=== PATIENT | female | born 1955 | race Two or more races ===

== ENCOUNTER 2017-12-03 13:20 | Emergency (ER) | payer OTHER ==
[~2017-12-03] VITALS: Ht 162.6 cm; Wt 120.2 kg
[~2017-12-03 13:20] MED LIST: ? CHOLESTEROL MED; ACET325 PO; ACET500; ACET500 PO; ALBIPROI; ALBIPROI INH; ALDACTONE; ALEN10 PO; ALEN70 PO; ALTACE; ASPI325 PO; ASPI81CH PO; ASPI81EC; ASPIRIN; AZIT250 PO; BACPOLTO30 TP; BENADRYL; BUDE32NIS; BUDE6HFA INH; BUPR100 PO; BUSP5 PO; CALCAVITD PO; CEPH500 PO; CETI10; CETI5; CETI5 PO; CITA20 PO; CLON2; CODACE30 PO; COMBIVENT RESPIM4 GM INH; COUGHTAB200 MG PO; CYCL10 PO; CYMBALTA; DHEA; DHEA PO; DIPH25; DIPH50; DIPH50 PO; DULO30; DULO60; DULO60 PO; EPI-PEN; EPIN.3I; EPIN.3I IM; EPIN0.15; EPIPEN; ESOM20; ESTEST.625; ESTR.75 PO; ESTR1; Esgic Tablet1 EACH PO; Estropipate0.75 MG PO; FAMO40; FISH; FLAX PO; FLAX SEED OIL; FLUC150A; FLUC150A PO; FLUSAL1005; FLUSAL2505 IH; FLUSAL5005; FLUSAL5005 IH; FLUSAL5005 INH; FLUT.05NI; FURO20; FURO20 PO; FURO40; GABA100 PO; GABA300; GABA300 PO; GABA400; GABA600 PO; GABA800; GABA800 PO; GLUC500 PO; GUAI200; GUAI200 PO; GUAI600T33 PO; GUAIFENESIN; HYDACE10B PO; HYDACE5 PO; HYDCHL25 PO; HYDMOR2; HYDMOR2 PO; IBUP800 PO; KETO10 PO; LORA.5 PO; LORA1; LORA1 PO; MECL25; MECL25 PO; MECLIZINE; META800 PO; METCAR750 PO; METH10 PO; METHADONE; METPRE4DP PO; NEOPOLHCSU OT; Norco 5-325 Ta1 EACH PO; OMEP20ER PO; OXYACE5T PO; OXYC10ER; OXYC10ER PO; OXYC10TA19 PO; OXYC20ER; OXYC30; OXYC5; OXYC80ER; OXYC80ER PO; PERP2 PO; PERP8 PO; PHENY100ER; POTA10T PO; POTCHL10ER; POTCHL10ER PO; PRED10 PO; PRED20 PO; PROACE100 PO; PROM25; PROM25 PO; PROM25S; PROM25S PR; PROP10 PO; PSEU120ER; Percocet 5-3251 EACH PO; Prednisone20 MG PO; Prilosec Otc20 MG; RAMI5; RAMI5 PO; RISP2; RXCYCL10 PO; SENN187; SENN187 PO; SENOKOT; SPIR25; SPIR25 PO; SUDAFED; TIOT18; TIOT18 IH; TOPI25; TOPI25 PO; TRAM50 PO; TRIHYD5075; VENL75; VENL75ER; VITNEPH PO; WHEELCHAIR USE; ZIPR20 PO; [UNRECOGNIZED DRUG - CODE]; [UNRECOGNIZED DRUG - OTHER]; [UNRECOGNIZED DRUG - OTHER]; [UNRECOGNIZED DRUG - OTHER]; [UNRECOGNIZED DRUG - OTHER]; [UNRECOGNIZED DRUG - OTHER]
[2017-12-03] MEDS ORDERED: TIOT18 INH (13:56)
[2017-12-03 14:05] LABS: BASOPHILS ABSOLUTE AUTO 0.03 K/mm3 (0.00-0.23); BASOPHILS PERCENT AUTO 1 % (0-2); EOSINOPHILS ABSOLUTE AUTO 0.17 K/mm3 (0.00-0.68); EOSINOPHILS PERCENT AUTO 3 % (0-6); Hematocrit 34.6 % (33.0-51.0); IMMATURE GRAN ABSOLUTE AUTO 0.01 K/mm3 (0.00-0.10); IMMATURE GRAN PERCENT AUTO 0 % (0-1); LYMPHOCYTES ABSOLUTE AUTO 2.22 K/mm3 (0.84-5.20); LYMPHOCYTES PERCENT AUTO 37 % (21-46); MONOCYTES ABSOLUTE AUTO 0.86 K/mm3 (0.16-1.47); MONOCYTES PERCENT AUTO 14 % (4-13); Mean Corpuscular HGB 30.5 pg (26.0-34.0); Mean Corpuscular HGB Conc 31.8 g/dL (31.5-36.5); Mean Corpuscular Volume 96 fL (80-100); Mean Platelet Volume 8.2 fL (9.1-12.4); NEUTROPHILS ABSOLUTE AUTO 2.71 K/mm3 (1.96-9.15); NEUTROPHILS PERCENT AUTO 45 % (41-73); Platelet Count 325 K/mm3 (150-400); RDW Coefficient Variation 13.8 % (11.7-14.2); RDW Standard Deviation 48.3 fL (35.1-46.3); Red Blood Cell Count 3.61 M/mm3 (3.80-5.20)
[2017-12-03 14:30] LABS: Alanine Aminotransfer (ALT/SGP 27 U/L (12-78); Albumin, Blood 3.1 g/dL (3.4-5.0); Albumin/Globulin Ratio 0.8 (0.8-1.8); Alk Phos 84 U/L (50-136); Anion Gap 6 mmol/L (6-16); Aspartate Aminotrans (AST/SGOT 20 U/L (12-37); Bilirubin, Total 0.3 mg/dL (0.1-1.0); Blood Urea Nitrogen 10 mg/dL (8-24); Bun/Creatinine Ratio 12.8 (12.0-20.0); CO2, Blood 33 mmol/L (21-32); Calcium, Blood 9.1 mg/dL (8.5-10.1); Chloride, Blood 100 mmol/L (98-108); Creatinine, Blood 0.78 mg/dL (0.40-1.00); Globulin, Blood 3.9 g/dL (2.2-4.0); Glomerular Filtration Rate >60 (60-); Glucose, Blood 97 mg/dL (70-99); Sodium, Blood 139 mmol/L (136-145); Troponin I <0.015 ng/mL (0.000-0.040)
[2017-12-03] MEDS ORDERED: PRED20 PO (16:04)
[2018-03-14] MEDS ORDERED: ALBU2.5V5 INH (13:50)
[2018-03-14] MEDS ORDERED: DHEA (13:51)
[2018-03-14] MEDS ORDERED: DIPHEDRYL25 MG (13:51)
[2018-03-14] MEDS ORDERED: FLONASE ALLERG9.9 ML (13:51)
[2018-03-14] MEDS ORDERED: ALEN70 (13:52)
[2018-03-14] MEDS ORDERED: LORA1 (13:52)
[2018-03-14] MEDS ORDERED: NAPR500 (13:52)
[2018-03-14] MEDS ORDERED: MUCUS RELIEF C200 MG (13:52)
[2018-03-14] MEDS ORDERED: QVAR REDIHALE10.6 G1 (13:53)
[2018-03-14] MEDS ORDERED: BUDE6HFA (13:53)
[2018-03-14] MEDS ORDERED: NARCAN4 MG (13:53)
[2018-03-14] MEDS ORDERED: STIOLTO RESPIMAT4 GM (13:53)
[2018-07-12] MEDS ORDERED: Flonase 0.05% N16 GM (08:41)
[2018-07-12] MEDS ORDERED: QVAR REDIHALE10.6 G1 INH (08:42)
[2018-07-12] MEDS ORDERED: MONT10T PO (08:43)
[2018-07-12] MEDS ORDERED: ALEN70 PO (08:44)
[2018-07-12] MEDS ORDERED: NAPR500EC PO (08:45)
[2018-07-12] MEDS ORDERED: DHEA50 MG PO (08:45)
[2018-07-12] MEDS ORDERED: ALIVE WOMEN'S1 EAC1 PO (08:46)
[2018-07-12] MEDS ORDERED: CHOL10002 PO (08:47)
[2018-07-12] MEDS ORDERED: EPIPEN0.3 MG/0.3 (08:47)
[2018-07-12] MEDS ORDERED: Narcan 0.40.4 MG/ML (08:48)
== END 2017-12-03 16:30 | disposition home or self-care (01) ==
LOC: ER 13:20
PROVIDERS: Emergency Medicine
DX: J44.9 Chronic obstructive pulmonary disease, unspecified (principal); I10 Essential (primary) hypertension; F31.9 Bipolar disorder, unspecified; Z91.018 Allergy to other foods; Z88.8 Allergy status to other drugs, medicaments and biological substances; Z91.012 Allergy to eggs; Z88.1 Allergy status to other antibiotic agents; Z91.040 Latex allergy status; Z88.0 Allergy status to penicillin; Z79.899 Other long term (current) drug therapy; Z90.89 Acquired absence of other organs; Z96.611 Presence of right artificial shoulder joint; Z90.710 Acquired absence of both cervix and uterus; Z87.891 Personal history of nicotine dependence; Z99.81 Dependence on supplemental oxygen
CPT/HCPCS: 36415; 71046; 80053; 83880; 84484; 85025; 93005; 93010; 94640; 96374; 96375; 99283; J1200; J1885; J2765; J2930

== ENCOUNTER 2017-12-23 11:13 | Inpatient (IN) | payer OTHER ==
[~2017-12-23] VITALS: Ht 162.6 cm; Wt 120.2 kg
[~2017-12-23 11:13] MED LIST changes: +TIOT18 INH
[2017-12-23 11:40] LABS: BASOPHILS ABSOLUTE AUTO 0.05 K/mm3 (0.00-0.23); BASOPHILS PERCENT AUTO 0 % (0-2); EOSINOPHILS ABSOLUTE AUTO 0.02 K/mm3 (0.00-0.68); EOSINOPHILS PERCENT AUTO 0 % (0-6); Hematocrit 37.3 % (33.0-51.0); Hemoglobin 12.3 g/dL (11.5-16.0); IMMATURE GRAN ABSOLUTE AUTO 0.11 K/mm3 (0.00-0.10); IMMATURE GRAN PERCENT AUTO 1 % (0-1); LYMPHOCYTES ABSOLUTE AUTO 1.37 K/mm3 (0.84-5.20); LYMPHOCYTES PERCENT AUTO 8 % (21-46); MONOCYTES ABSOLUTE AUTO 1.34 K/mm3 (0.16-1.47); MONOCYTES PERCENT AUTO 7 % (4-13); Mean Corpuscular HGB 30.1 pg (26.0-34.0); Mean Corpuscular Volume 91 fL (80-100); Mean Platelet Volume 8.5 fL (9.1-12.4); NEUTROPHILS ABSOLUTE AUTO 15.47 K/mm3 (1.96-9.15); NEUTROPHILS PERCENT AUTO 84 % (41-73); Platelet Count 313 K/mm3 (150-400); RDW Coefficient Variation 13.2 % (11.7-14.2); RDW Standard Deviation 43.6 fL (35.1-46.3); Red Blood Cell Count 4.09 M/mm3 (3.80-5.20); White Blood Cell Count 18.36 K/mm3 (4.00-11.30)
[2017-12-23 11:54] LABS: Alanine Aminotransfer (ALT/SGP 41 U/L (12-78); Albumin, Blood 3.4 g/dL (3.4-5.0); Albumin/Globulin Ratio 0.8 (0.8-1.8); Alk Phos 297 U/L (50-136); Anion Gap 6 mmol/L (6-16); Aspartate Aminotrans (AST/SGOT 92 U/L (12-37); Blood Urea Nitrogen 18 mg/dL (8-24); Bun/Creatinine Ratio 22.5 (12.0-20.0); CO2, Blood 32 mmol/L (21-32); Calcium, Blood 9.6 mg/dL (8.5-10.1); Chloride, Blood 91 mmol/L (98-108); Globulin, Blood 4.2 g/dL (2.2-4.0); Glomerular Filtration Rate >60 (60-); Glucose, Blood 128 mg/dL (70-99); Potassium, Blood 4.6 mmol/L (3.5-5.5); Sodium, Blood 129 mmol/L (136-145); Total Protein, Blood 7.6 g/dL (6.4-8.2)
[2017-12-23 12:50] LABS: Source, Urine Voided
[2017-12-23 12:52] LABS: Appearance, Urine Clear (Clear); Bilirubin, Urine Neg (Neg); Blood, Urine Neg (Neg); Color, Urine Yellow (P-Yellow); Glucose Qualitative, Urine Neg (Neg); Ketones, Urine Neg (Neg); Leukocyte Esterase, Urine 1+ (Neg); Nitrite, Urine Neg (Neg); Protein, Urine Neg (Neg); Specific Gravity, Urine 1.005 (1.003-1.022); Urobilinogen, Urine NORM (Normal)
[2017-12-23 12:57] LABS: Bacteria Few /hpf; Red Blood Cells, Urine 0-2 /hpf (0-2); Squamous Epithelial Cells Few /hpf (Few); White Blood Cells, Urine 0-2 /hpf (0-5)
[2017-12-24 04:59] LABS: BASOPHILS ABSOLUTE AUTO 0.02 K/mm3 (0.00-0.23); BASOPHILS PERCENT AUTO 0 % (0-2); EOSINOPHILS ABSOLUTE AUTO 0.07 K/mm3 (0.00-0.68); EOSINOPHILS PERCENT AUTO 1 % (0-6); Hematocrit 32.2 % (33.0-51.0); Hemoglobin 10.3 g/dL (11.5-16.0); IMMATURE GRAN ABSOLUTE AUTO 0.11 K/mm3 (0.00-0.10); IMMATURE GRAN PERCENT AUTO 1 % (0-1); LYMPHOCYTES ABSOLUTE AUTO 0.91 K/mm3 (0.84-5.20); LYMPHOCYTES PERCENT AUTO 6 % (21-46); MONOCYTES ABSOLUTE AUTO 1.39 K/mm3 (0.16-1.47); MONOCYTES PERCENT AUTO 10 % (4-13); Mean Corpuscular HGB 29.9 pg (26.0-34.0); Mean Platelet Volume 8.4 fL (9.1-12.4); NEUTROPHILS ABSOLUTE AUTO 11.84 K/mm3 (1.96-9.15); NEUTROPHILS PERCENT AUTO 83 % (41-73); Platelet Count 253 K/mm3 (150-400); RDW Coefficient Variation 13.6 % (11.7-14.2); RDW Standard Deviation 45.8 fL (35.1-46.3); Red Blood Cell Count 3.44 M/mm3 (3.80-5.20); White Blood Cell Count 14.34 K/mm3 (4.00-11.30)
[2017-12-24 05:02] LABS: Mean Corpuscular Volume 94 fL (80-100)
[2017-12-24 05:42] LABS: Alanine Aminotransfer (ALT/SGP 34 U/L (12-78); Albumin, Blood 2.5 g/dL (3.4-5.0); Albumin/Globulin Ratio 0.7 (0.8-1.8); Alk Phos 338 U/L (50-136); Anion Gap 7 mmol/L (6-16); Aspartate Aminotrans (AST/SGOT 72 U/L (12-37); Bilirubin, Total 0.8 mg/dL (0.1-1.0); Blood Urea Nitrogen 11 mg/dL (8-24); Bun/Creatinine Ratio 15.8 (12.0-20.0); CO2, Blood 28 mmol/L (21-32); Chloride, Blood 98 mmol/L (98-108); Globulin, Blood 3.8 g/dL (2.2-4.0); Glomerular Filtration Rate >60 (60-); Glucose, Blood 96 mg/dL (70-99); Potassium, Blood 4.5 mmol/L (3.5-5.5); Sodium, Blood 133 mmol/L (136-145); Total Protein, Blood 6.3 g/dL (6.4-8.2)
[2017-12-24 05:45] LABS: Calcium, Blood 8.3 mg/dL (8.5-10.1)
[2017-12-25 05:12] LABS: BASOPHILS ABSOLUTE AUTO 0.04 K/mm3 (0.00-0.23); BASOPHILS PERCENT AUTO 0 % (0-2); EOSINOPHILS ABSOLUTE AUTO 0.04 K/mm3 (0.00-0.68); EOSINOPHILS PERCENT AUTO 0 % (0-6); Hematocrit 34.3 % (33.0-51.0); Hemoglobin 11.1 g/dL (11.5-16.0); IMMATURE GRAN ABSOLUTE AUTO 0.15 K/mm3 (0.00-0.10); IMMATURE GRAN PERCENT AUTO 1 % (0-1); LYMPHOCYTES ABSOLUTE AUTO 0.92 K/mm3 (0.84-5.20); LYMPHOCYTES PERCENT AUTO 6 % (21-46); MONOCYTES ABSOLUTE AUTO 1.64 K/mm3 (0.16-1.47); MONOCYTES PERCENT AUTO 10 % (4-13); Mean Corpuscular HGB 30.2 pg (26.0-34.0); Mean Corpuscular HGB Conc 32.4 g/dL (31.5-36.5); Mean Corpuscular Volume 93 fL (80-100); Mean Platelet Volume 8.8 fL (9.1-12.4); NEUTROPHILS ABSOLUTE AUTO 13.28 K/mm3 (1.96-9.15); NEUTROPHILS PERCENT AUTO 83 % (41-73); Platelet Count 299 K/mm3 (150-400); RDW Coefficient Variation 13.8 % (11.7-14.2); RDW Standard Deviation 47.1 fL (35.1-46.3); Red Blood Cell Count 3.68 M/mm3 (3.80-5.20); White Blood Cell Count 16.07 K/mm3 (4.00-11.30)
[2017-12-25 05:33] LABS: Alanine Aminotransfer (ALT/SGP 34 U/L (12-78); Albumin, Blood 2.4 g/dL (3.4-5.0); Albumin/Globulin Ratio 0.6 (0.8-1.8); Alk Phos 330 U/L (50-136); Anion Gap 9 mmol/L (6-16); Aspartate Aminotrans (AST/SGOT 49 U/L (12-37); Bilirubin, Total 0.6 mg/dL (0.1-1.0); Blood Urea Nitrogen 11 mg/dL (8-24); Bun/Creatinine Ratio 16.2 (12.0-20.0); CO2, Blood 27 mmol/L (21-32); Calcium, Blood 8.7 mg/dL (8.5-10.1); Chloride, Blood 100 mmol/L (98-108); Creatinine, Blood 0.68 mg/dL (0.40-1.00); Globulin, Blood 4.3 g/dL (2.2-4.0); Glomerular Filtration Rate >60 (60-); Glucose, Blood 113 mg/dL (70-99); Potassium, Blood 4.5 mmol/L (3.5-5.5); Sodium, Blood 136 mmol/L (136-145); Total Protein, Blood 6.7 g/dL (6.4-8.2)
[2017-12-26 07:59] LABS: BASOPHILS ABSOLUTE AUTO 0.03 K/mm3 (0.00-0.23); BASOPHILS PERCENT AUTO 0 % (0-2); EOSINOPHILS ABSOLUTE AUTO 0.13 K/mm3 (0.00-0.68); EOSINOPHILS PERCENT AUTO 1 % (0-6); Hematocrit 33.6 % (33.0-51.0); Hemoglobin 10.6 g/dL (11.5-16.0); IMMATURE GRAN ABSOLUTE AUTO 0.07 K/mm3 (0.00-0.10); IMMATURE GRAN PERCENT AUTO 1 % (0-1); LYMPHOCYTES ABSOLUTE AUTO 1.01 K/mm3 (0.84-5.20); LYMPHOCYTES PERCENT AUTO 7 % (21-46); MONOCYTES ABSOLUTE AUTO 1.45 K/mm3 (0.16-1.47); MONOCYTES PERCENT AUTO 10 % (4-13); Mean Corpuscular HGB 29.9 pg (26.0-34.0); Mean Corpuscular HGB Conc 31.5 g/dL (31.5-36.5); Mean Corpuscular Volume 95 fL (80-100); Mean Platelet Volume 8.8 fL (9.1-12.4); NEUTROPHILS ABSOLUTE AUTO 11.59 K/mm3 (1.96-9.15); NEUTROPHILS PERCENT AUTO 81 % (41-73); Platelet Count 322 K/mm3 (150-400); RDW Coefficient Variation 13.7 % (11.7-14.2); RDW Standard Deviation 47.7 fL (35.1-46.3); Red Blood Cell Count 3.55 M/mm3 (3.80-5.20); White Blood Cell Count 14.28 K/mm3 (4.00-11.30)
[2017-12-26 08:14] LABS: Anion Gap 7 mmol/L (6-16); Blood Urea Nitrogen 8 mg/dL (8-24); CO2, Blood 28 mmol/L (21-32); Calcium, Blood 8.2 mg/dL (8.5-10.1); Chloride, Blood 102 mmol/L (98-108); Glomerular Filtration Rate >60 (60-); Glucose, Blood 100 mg/dL (70-99); Potassium, Blood 4.2 mmol/L (3.5-5.5); Sodium, Blood 137 mmol/L (136-145)
[2017-12-28 04:00] LABS: Hematocrit 30.4 % (33.0-51.0); Hemoglobin 9.9 g/dL (11.5-16.0); Mean Corpuscular HGB 30.1 pg (26.0-34.0); Mean Corpuscular HGB Conc 32.6 g/dL (31.5-36.5); Mean Platelet Volume 8.4 fL (9.1-12.4); NRBC ABSOLUTE 0.02 K/mm3 (0.00-0.02); NRBC Auto 0.2 /100 WBC (0.0-0.2); Platelet Count 332 K/mm3 (150-400); RDW Coefficient Variation 13.6 % (11.7-14.2); RDW Standard Deviation 46.5 fL (35.1-46.3); Red Blood Cell Count 3.29 M/mm3 (3.80-5.20); White Blood Cell Count 12.08 K/mm3 (4.00-11.30)
[2017-12-28 04:02] LABS: Mean Corpuscular Volume 92 fL (80-100)
[2017-12-28 04:18] LABS: Anion Gap 10 mmol/L (6-16); Blood Urea Nitrogen 8 mg/dL (8-24); CO2, Blood 31 mmol/L (21-32); Calcium, Blood 7.4 mg/dL (8.5-10.1); Chloride, Blood 100 mmol/L (98-108); Creatinine, Blood 0.57 mg/dL (0.40-1.00); Glomerular Filtration Rate >60 (60-); Glucose, Blood 82 mg/dL (70-99); Sodium, Blood 141 mmol/L (136-145)
[2017-12-29 05:03] LABS: Hematocrit 30.7 % (33.0-51.0); Hemoglobin 9.8 g/dL (11.5-16.0); Mean Corpuscular HGB 29.5 pg (26.0-34.0); Mean Corpuscular HGB Conc 31.9 g/dL (31.5-36.5); Mean Corpuscular Volume 93 fL (80-100); Mean Platelet Volume 8.8 fL (9.1-12.4); NRBC ABSOLUTE 0.05 K/mm3 (0.00-0.02); NRBC Auto 0.4 /100 WBC (0.0-0.2); Platelet Count 369 K/mm3 (150-400); RDW Coefficient Variation 13.9 % (11.7-14.2); RDW Standard Deviation 47.4 fL (35.1-46.3); Red Blood Cell Count 3.32 M/mm3 (3.80-5.20); White Blood Cell Count 13.29 K/mm3 (4.00-11.30)
[2017-12-29 05:25] LABS: Anion Gap 7 mmol/L (6-16); Blood Urea Nitrogen 6 mg/dL (8-24); CO2, Blood 32 mmol/L (21-32); Calcium, Blood 7.8 mg/dL (8.5-10.1); Chloride, Blood 105 mmol/L (98-108); Creatinine, Blood 0.46 mg/dL (0.40-1.00); Glomerular Filtration Rate >60 (60-); Glucose, Blood 154 mg/dL (70-99); Magnesium, Blood 2.3 mg/dL (1.6-2.4); Potassium, Blood 3.2 mmol/L (3.5-5.5); Sodium, Blood 144 mmol/L (136-145)
[2017-12-30 05:25] LABS: Hemoglobin 10.7 g/dL (11.5-16.0); Mean Corpuscular HGB 29.3 pg (26.0-34.0); Mean Corpuscular HGB Conc 31.5 g/dL (31.5-36.5); Mean Corpuscular Volume 93 fL (80-100); NRBC ABSOLUTE 0.02 K/mm3 (0.00-0.02); NRBC Auto 0.1 /100 WBC (0.0-0.2); Platelet Count 380 K/mm3 (150-400); RDW Coefficient Variation 14.3 % (11.7-14.2); RDW Standard Deviation 49.1 fL (35.1-46.3); Red Blood Cell Count 3.65 M/mm3 (3.80-5.20); White Blood Cell Count 13.52 K/mm3 (4.00-11.30)
[2017-12-30 05:46] LABS: Anion Gap 7 mmol/L (6-16); Blood Urea Nitrogen 5 mg/dL (8-24); Bun/Creatinine Ratio 9.4 (12.0-20.0); CO2, Blood 32 mmol/L (21-32); Calcium, Blood 8.7 mg/dL (8.5-10.1); Chloride, Blood 100 mmol/L (98-108); Creatinine, Blood 0.53 mg/dL (0.40-1.00); Glomerular Filtration Rate >60 (60-); Glucose, Blood 112 mg/dL (70-99); Potassium, Blood 3.3 mmol/L (3.5-5.5); Sodium, Blood 139 mmol/L (136-145)
[2017-12-30] MEDS ORDERED: HYDR1TAB94 PO (10:59)
[2017-12-30] MEDS ORDERED: LEVFLO500 PO (11:01)
[2017-12-30] MEDS ORDERED: MONT10T PO (11:03)
[2017-12-30] MEDS ORDERED: METR500 PO (11:03)
[2017-12-30] MEDS ORDERED: TORSE20 PO (11:04)
[2017-12-30] MEDS ORDERED: ZIPR20 PO (11:06)
[2017-12-30] MEDS ORDERED: TIOT18 INH (11:08)
[2017-12-30] MEDS ORDERED: MIRALAX17 GM (11:11)
[2017-12-30] MEDS ORDERED: SACC250C PO (11:11)
[2017-12-30] MEDS ORDERED: POTASSIUM CHLO20 MEQ PO (11:12)
[2017-12-30] MEDS ORDERED: PERP8 PO (11:14)
[2018-03-14] MEDS ORDERED: ALBU2.5V5 INH (13:50)
[2018-03-14] MEDS ORDERED: FLONASE ALLERG9.9 ML (13:51)
[2018-03-14] MEDS ORDERED: DIPHEDRYL25 MG (13:51)
[2018-03-14] MEDS ORDERED: DHEA (13:51)
[2018-03-14] MEDS ORDERED: ALEN70 (13:52)
[2018-03-14] MEDS ORDERED: LORA1 (13:52)
[2018-03-14] MEDS ORDERED: NAPR500 (13:52)
[2018-03-14] MEDS ORDERED: MUCUS RELIEF C200 MG (13:52)
[2018-03-14] MEDS ORDERED: BUDE6HFA (13:53)
[2018-03-14] MEDS ORDERED: STIOLTO RESPIMAT4 GM (13:53)
[2018-03-14] MEDS ORDERED: NARCAN4 MG (13:53)
[2018-03-14] MEDS ORDERED: QVAR REDIHALE10.6 G1 (13:53)
[2018-07-12] MEDS ORDERED: Flonase 0.05% N16 GM (08:41)
[2018-07-12] MEDS ORDERED: QVAR REDIHALE10.6 G1 INH (08:42)
[2018-07-12] MEDS ORDERED: MONT10T PO (08:43)
[2018-07-12] MEDS ORDERED: ALEN70 PO (08:44)
[2018-07-12] MEDS ORDERED: NAPR500EC PO (08:45)
[2018-07-12] MEDS ORDERED: DHEA50 MG PO (08:45)
[2018-07-12] MEDS ORDERED: ALIVE WOMEN'S1 EAC1 PO (08:46)
[2018-07-12] MEDS ORDERED: CHOL10002 PO (08:47)
[2018-07-12] MEDS ORDERED: EPIPEN0.3 MG/0.3 (08:47)
[2018-07-12] MEDS ORDERED: Narcan 0.40.4 MG/ML (08:48)
== END 2017-12-30 14:12 | disposition home or self-care (01) | DRG 392 ==
LOC: ER 11:13 → MEDS 13:27 → SURS 13:27
PROVIDERS: Emergency Medicine; Internal Medicine
PROC: 0D9670Z Drainage of Stomach with Drainage Device, Via Natural or Artificial Opening (ICD-10-PCS; principal; 2017-12-25)
DX: K52.9 Noninfective gastroenteritis and colitis, unspecified (principal); K56.609 Unspecified intestinal obstruction, unspecified as to partial versus complete obstruction; Z99.81 Dependence on supplemental oxygen; Z68.42 Body mass index [BMI] 45.0-49.9, adult; K56.7 Ileus, unspecified; E66.01 Morbid (severe) obesity due to excess calories; I10 Essential (primary) hypertension; J44.9 Chronic obstructive pulmonary disease, unspecified; B19.20 Unspecified viral hepatitis C without hepatic coma; G89.4 Chronic pain syndrome; E78.5 Hyperlipidemia, unspecified; E87.6 Hypokalemia; F41.9 Anxiety disorder, unspecified; F32.9 Major depressive disorder, single episode, unspecified
CPT/HCPCS: 36415; 74018; 74022; 74176; 74250; 76705; 80048; 80053; 81001; 83605; 83690; 83735; 85025; 85027; 87086; 94640; 94760; 96361; 96365; 96375; 96376; 99285; C9113; J1450; J1650; J1956; J2060; J2405; J3010; J3480; J7030; Q0175

== ENCOUNTER 2018-03-21 11:08 | Day surgery (SDC) | payer OTHER ==
[~2018-03-21] VITALS: Ht 162.6 cm; Wt 118.8 kg
[~2018-03-21 11:08] MED LIST changes: +ALBU2.5V5; +ALEN70; +BUDE6HFA; +DIPHEDRYL25 MG; +FLONASE ALLERG9.9 ML; +HYDR1TAB94 PO; +LEVFLO500 PO; +METR500 PO; +MIRALAX17 GM; +MONT10T PO; +MUCUS RELIEF C200 MG; +NAPR500; +NARCAN4 MG; +POTASSIUM CHLO20 MEQ PO; +QVAR REDIHALE10.6 G1; +SACC250C PO; +STIOLTO RESPIMAT4 GM; +TORSE20 PO
== END 2018-03-21 13:26 | disposition home or self-care (01) ==
LOC: ORSCSDS 11:08
PROVIDERS: Internal Medicine Gastroenterology
PROC: 0DBM8ZX Excision of Descending Colon, Via Natural or Artificial Opening Endoscopic, Diagnostic (ICD-10-PCS; principal; 2018-03-21 12:15)
PROC: 0DB68ZX Excision of Stomach, Via Natural or Artificial Opening Endoscopic, Diagnostic (ICD-10-PCS; principal; 2018-03-21 12:15)
PROC: 3E0H8GC Introduction of Other Therapeutic Substance into Lower GI, Via Natural or Artificial Opening Endoscopic (ICD-10-PCS; principal; 2018-03-21 12:15)
PROC: 0DB98ZX Excision of Duodenum, Via Natural or Artificial Opening Endoscopic, Diagnostic (ICD-10-PCS; principal; 2018-03-21 12:15)
DX: R10.9 Unspecified abdominal pain (principal); K64.8 Other hemorrhoids; K56.600 Partial intestinal obstruction, unspecified as to cause; R11.0 Nausea; Z87.19 Personal history of other diseases of the digestive system; Z86.010 Personal history of colon polyps; J44.9 Chronic obstructive pulmonary disease, unspecified; G47.33 Obstructive sleep apnea (adult) (pediatric); I10 Essential (primary) hypertension; E78.5 Hyperlipidemia, unspecified; B19.20 Unspecified viral hepatitis C without hepatic coma; F41.8 Other specified anxiety disorders; E03.9 Hypothyroidism, unspecified; K76.0 Fatty (change of) liver, not elsewhere classified; F17.210 Nicotine dependence, cigarettes, uncomplicated; Z79.899 Other long term (current) drug therapy
CPT/HCPCS: 88302; 88305; 88342; J1980; J2250; J2405

== ENCOUNTER 2018-04-01 08:31 | Inpatient (IN) | payer OTHER ==
[~2018-04-01] VITALS: Ht 162.6 cm; Wt 120.2 kg
[~2018-04-01 08:31] MED LIST changes: -ALBU2.5V5; +ALBU2.5V5 INH
[2018-04-02] MEDS ORDERED: ALBU90OI INH (09:16)
[2018-04-02] MEDS ORDERED: DHEA PO (09:29)
[2018-04-02] MEDS ORDERED: PERP4 PO (09:29)
[2018-04-02] MEDS ORDERED: DULO60 PO (09:29)
[2018-04-02] MEDS ORDERED: RAMI5 PO (09:30)
[2018-04-02] MEDS ORDERED: POTCHL20ER PO (09:30)
[2018-04-02] MEDS ORDERED: TORSE20 PO (09:30)
[2018-04-02] MEDS ORDERED: ZIPR20 PO (09:30)
[2018-04-02] MEDS ORDERED: CETI5 PO (09:31)
[2018-04-02] MEDS ORDERED: Omeprazole20 M1 PO (09:31)
[2018-04-02] MEDS ORDERED: METCAR500 PO (09:31)
[2018-04-02] MEDS ORDERED: PROM25 PO (09:32)
[2018-04-02] MEDS ORDERED: Estropipate0.75 MG PO (09:32)
[2018-04-02] MEDS ORDERED: GUAI600T33 PO (09:33)
[2018-04-02] MEDS ORDERED: DIPH50 PO (09:33)
[2018-04-02] MEDS ORDERED: BUDE6HFA INH (09:33)
[2018-04-02] MEDS ORDERED: STIOLTO RESPIMAT4 GM INH (09:34)
[2018-04-02] MEDS ORDERED: COMBIVENT RESPIM4 GM INH (09:35)
[2018-04-02] MEDS ORDERED: HYDR1TAB94 PO (09:36)
[2018-04-02] MEDS ORDERED: LORA1 PO (09:36)
[2018-04-02 09:50] LABS: BASOPHILS ABSOLUTE AUTO 0.04 K/mm3 (0.00-0.23); BASOPHILS PERCENT AUTO 1 % (0-2); EOSINOPHILS ABSOLUTE AUTO 0.18 K/mm3 (0.00-0.68); EOSINOPHILS PERCENT AUTO 2 % (0-6); Hematocrit 35.6 % (33.0-51.0); Hemoglobin 11.8 g/dL (11.5-16.0); IMMATURE GRAN ABSOLUTE AUTO 0.01 K/mm3 (0.00-0.10); IMMATURE GRAN PERCENT AUTO 0 % (0-1); LYMPHOCYTES ABSOLUTE AUTO 2.36 K/mm3 (0.84-5.20); LYMPHOCYTES PERCENT AUTO 31 % (21-46); MONOCYTES ABSOLUTE AUTO 0.89 K/mm3 (0.16-1.47); MONOCYTES PERCENT AUTO 12 % (4-13); Mean Corpuscular HGB 29.1 pg (26.0-34.0); Mean Corpuscular HGB Conc 33.1 g/dL (31.5-36.5); Mean Corpuscular Volume 88 fL (80-100); Mean Platelet Volume 8.6 fL (9.1-12.4); NEUTROPHILS ABSOLUTE AUTO 4.05 K/mm3 (1.96-9.15); NEUTROPHILS PERCENT AUTO 54 % (41-73); Platelet Count 349 K/mm3 (150-400); RDW Coefficient Variation 13.3 % (11.7-14.2); Red Blood Cell Count 4.06 M/mm3 (3.80-5.20); White Blood Cell Count 7.53 K/mm3 (4.00-11.30)
[2018-04-02 11:29] LABS: Alanine Aminotransfer (ALT/SGP 24 U/L (12-78); Albumin, Blood 3.4 g/dL (3.4-5.0); Albumin/Globulin Ratio 0.8 (0.8-1.8); Alk Phos 78 U/L (50-136); Anion Gap 10 mmol/L (6-16); Aspartate Aminotrans (AST/SGOT 22 U/L (12-37); Bilirubin, Direct <0.1 mg/dL (0.0-0.3); Bilirubin, Indirect Unable to Calculate mg/dL (0.1-0.7); Bilirubin, Total 0.3 mg/dL (0.1-1.0); Blood Urea Nitrogen 9 mg/dL (8-24); Bun/Creatinine Ratio 12.9 (12.0-20.0); CO2, Blood 30 mmol/L (21-32); Calcium, Blood 8.6 mg/dL (8.5-10.1); Chloride, Blood 97 mmol/L (98-108); Globulin, Blood 4.4 g/dL (2.2-4.0); Glomerular Filtration Rate >60 (60-); Glucose, Blood 117 mg/dL (70-99); Sodium, Blood 137 mmol/L (136-145); Total Protein, Blood 7.8 g/dL (6.4-8.2)
[2018-04-04 05:51] LABS: BASOPHILS ABSOLUTE AUTO 0.04 K/mm3 (0.00-0.23); BASOPHILS PERCENT AUTO 0 % (0-2); EOSINOPHILS ABSOLUTE AUTO 0.09 K/mm3 (0.00-0.68); EOSINOPHILS PERCENT AUTO 1 % (0-6); Hematocrit 28.1 % (33.0-51.0); Hemoglobin 9.3 g/dL (11.5-16.0); IMMATURE GRAN ABSOLUTE AUTO 0.02 K/mm3 (0.00-0.10); IMMATURE GRAN PERCENT AUTO 0 % (0-1); LYMPHOCYTES ABSOLUTE AUTO 1.66 K/mm3 (0.84-5.20); LYMPHOCYTES PERCENT AUTO 17 % (21-46); MONOCYTES ABSOLUTE AUTO 1.19 K/mm3 (0.16-1.47); MONOCYTES PERCENT AUTO 12 % (4-13); Mean Corpuscular HGB 29.9 pg (26.0-34.0); Mean Corpuscular HGB Conc 33.1 g/dL (31.5-36.5); Mean Corpuscular Volume 90 fL (80-100); Mean Platelet Volume 8.8 fL (9.1-12.4); NEUTROPHILS ABSOLUTE AUTO 6.91 K/mm3 (1.96-9.15); NEUTROPHILS PERCENT AUTO 70 % (41-73); Platelet Count 266 K/mm3 (150-400); RDW Coefficient Variation 13.6 % (11.7-14.2); RDW Standard Deviation 44.4 fL (35.1-46.3); Red Blood Cell Count 3.11 M/mm3 (3.80-5.20); White Blood Cell Count 9.91 K/mm3 (4.00-11.30)
[2018-04-04 06:07] LABS: Anion Gap 7 mmol/L (6-16); Blood Urea Nitrogen 5 mg/dL (8-24); Bun/Creatinine Ratio 7.5 (12.0-20.0); CO2, Blood 32 mmol/L (21-32); Calcium, Blood 7.9 mg/dL (8.5-10.1); Chloride, Blood 98 mmol/L (98-108); Creatinine, Blood 0.67 mg/dL (0.40-1.00); Glomerular Filtration Rate >60 (60-); Glucose, Blood 96 mg/dL (70-99); Potassium, Blood 3.2 mmol/L (3.5-5.5); Sodium, Blood 137 mmol/L (136-145)
[2018-04-05 05:16] LABS: BASOPHILS ABSOLUTE AUTO 0.03 K/mm3 (0.00-0.23); BASOPHILS PERCENT AUTO 0 % (0-2); EOSINOPHILS PERCENT AUTO 3 % (0-6); Hematocrit 27.1 % (33.0-51.0); IMMATURE GRAN ABSOLUTE AUTO 0.04 K/mm3 (0.00-0.10); IMMATURE GRAN PERCENT AUTO 0 % (0-1); LYMPHOCYTES ABSOLUTE AUTO 1.99 K/mm3 (0.84-5.20); LYMPHOCYTES PERCENT AUTO 21 % (21-46); MONOCYTES PERCENT AUTO 11 % (4-13); Mean Corpuscular HGB 29.9 pg (26.0-34.0); Mean Corpuscular HGB Conc 33.2 g/dL (31.5-36.5); Mean Corpuscular Volume 90 fL (80-100); Mean Platelet Volume 9.2 fL (9.1-12.4); NEUTROPHILS ABSOLUTE AUTO 6.16 K/mm3 (1.96-9.15); NEUTROPHILS PERCENT AUTO 64 % (41-73); Platelet Count 255 K/mm3 (150-400); RDW Coefficient Variation 13.6 % (11.7-14.2); RDW Standard Deviation 44.9 fL (35.1-46.3); Red Blood Cell Count 3.01 M/mm3 (3.80-5.20); White Blood Cell Count 9.62 K/mm3 (4.00-11.30)
[2018-04-05 05:39] LABS: Anion Gap 8 mmol/L (6-16); Blood Urea Nitrogen 3 mg/dL (8-24); Bun/Creatinine Ratio 5.1 (12.0-20.0); CO2, Blood 33 mmol/L (21-32); Calcium, Blood 8.2 mg/dL (8.5-10.1); Chloride, Blood 97 mmol/L (98-108); Creatinine, Blood 0.59 mg/dL (0.40-1.00); Glomerular Filtration Rate >60 (60-); Glucose, Blood 101 mg/dL (70-99); Potassium, Blood 3.1 mmol/L (3.5-5.5); Sodium, Blood 138 mmol/L (136-145)
[2018-04-06 13:21] LABS: Anion Gap 6 mmol/L (6-16); Blood Urea Nitrogen 6 mg/dL (8-24); Bun/Creatinine Ratio 10.1 (12.0-20.0); CO2, Blood 32 mmol/L (21-32); Calcium, Blood 8.9 mg/dL (8.5-10.1); Chloride, Blood 99 mmol/L (98-108); Creatinine, Blood 0.59 mg/dL (0.40-1.00); Glomerular Filtration Rate >60 (60-); Glucose, Blood 147 mg/dL (70-99); Potassium, Blood 4.1 mmol/L (3.5-5.5); Sodium, Blood 137 mmol/L (136-145)
[2018-04-07 04:48] LABS: BASOPHILS ABSOLUTE AUTO 0.03 K/mm3 (0.00-0.23); BASOPHILS PERCENT AUTO 0 % (0-2); EOSINOPHILS ABSOLUTE AUTO 0.55 K/mm3 (0.00-0.68); EOSINOPHILS PERCENT AUTO 7 % (0-6); IMMATURE GRAN ABSOLUTE AUTO 0.03 K/mm3 (0.00-0.10); IMMATURE GRAN PERCENT AUTO 0 % (0-1); LYMPHOCYTES ABSOLUTE AUTO 1.64 K/mm3 (0.84-5.20); LYMPHOCYTES PERCENT AUTO 21 % (21-46); MONOCYTES PERCENT AUTO 13 % (4-13); Mean Corpuscular HGB 29.2 pg (26.0-34.0); Mean Corpuscular HGB Conc 32.1 g/dL (31.5-36.5); Mean Corpuscular Volume 91 fL (80-100); Mean Platelet Volume 9.1 fL (9.1-12.4); NEUTROPHILS ABSOLUTE AUTO 4.42 K/mm3 (1.96-9.15); NEUTROPHILS PERCENT AUTO 58 % (41-73); Platelet Count 312 K/mm3 (150-400); RDW Coefficient Variation 13.8 % (11.7-14.2); RDW Standard Deviation 45.4 fL (35.1-46.3); Red Blood Cell Count 3.08 M/mm3 (3.80-5.20); White Blood Cell Count 7.67 K/mm3 (4.00-11.30)
[2018-04-07 05:10] LABS: Anion Gap 6 mmol/L (6-16); Blood Urea Nitrogen 7 mg/dL (8-24); Bun/Creatinine Ratio 11.3 (12.0-20.0); CO2, Blood 31 mmol/L (21-32); Chloride, Blood 98 mmol/L (98-108); Creatinine, Blood 0.62 mg/dL (0.40-1.00); Glomerular Filtration Rate >60 (60-); Glucose, Blood 96 mg/dL (70-99); Magnesium, Blood 1.6 mg/dL (1.6-2.4); Phosphorus, Blood 3.1 mg/dL (2.5-4.9); Sodium, Blood 135 mmol/L (136-145)
[2018-04-07] MEDS ORDERED: GABA800 PO (21:12)
[2018-04-11] MEDS ORDERED: OXYC5 (07:57)
[2018-04-12] MEDS ORDERED: Cleocin HCl150 MG PO (10:50)
== END 2018-04-11 11:05 | disposition home or self-care (01) | DRG 330 ==
LOC: SURS 04-03 05:49 → PRE IP 04-03 07:30 → SURS 04-03 12:10
PROVIDERS: Surgery
PROC: 0DBN0ZZ Excision of Sigmoid Colon, Open Approach (ICD-10-PCS; 2018-04-03)
PROC: 0DB80ZZ Excision of Small Intestine, Open Approach (ICD-10-PCS; principal; 2018-04-03 07:30)
DX: K56.600 Partial intestinal obstruction, unspecified as to cause (principal); Z68.41 Body mass index [BMI] 40.0-44.9, adult; K63.89 Other specified diseases of intestine; B19.20 Unspecified viral hepatitis C without hepatic coma; I10 Essential (primary) hypertension; Z95.828 Presence of other vascular implants and grafts; J44.9 Chronic obstructive pulmonary disease, unspecified; J43.9 Emphysema, unspecified; G47.33 Obstructive sleep apnea (adult) (pediatric); K21.9 Gastro-esophageal reflux disease without esophagitis; E78.5 Hyperlipidemia, unspecified; F41.8 Other specified anxiety disorders; E03.9 Hypothyroidism, unspecified; K76.0 Fatty (change of) liver, not elsewhere classified; E66.01 Morbid (severe) obesity due to excess calories; K59.09 Other constipation; Z99.81 Dependence on supplemental oxygen
CPT/HCPCS: 36415; 80048; 80076; 82378; 82947; 83735; 84100; 85025; 86850; 86900; 86901; 88307; 93005; 93010; 94640; 94760; 94762; 97110; 97116; 97161; 97530; C1894; G8978; G8979; J0171; J1580; J1650; J1885; J2250; J2405; J2765; J3010; J7050; J7120; Q0163; Q0175

== ENCOUNTER 2018-04-12 08:46 | Emergency (ER) | payer OTHER ==
[~2018-04-12] VITALS: Ht 162.6 cm; Wt 120.2 kg
[~2018-04-12 08:46] MED LIST changes: +ALBU90OI INH; +METCAR500 PO; +Omeprazole20 M1 PO; +PERP4 PO; +POTCHL20ER PO; +STIOLTO RESPIMAT4 GM INH
[2018-04-12 09:53] LABS: BASOPHILS ABSOLUTE AUTO 0.03 K/mm3 (0.00-0.23); BASOPHILS PERCENT AUTO 0 % (0-2); EOSINOPHILS ABSOLUTE AUTO 0.49 K/mm3 (0.00-0.68); EOSINOPHILS PERCENT AUTO 6 % (0-6); Hematocrit 27.7 % (33.0-51.0); IMMATURE GRAN ABSOLUTE AUTO 0.05 K/mm3 (0.00-0.10); IMMATURE GRAN PERCENT AUTO 1 % (0-1); LYMPHOCYTES ABSOLUTE AUTO 1.56 K/mm3 (0.84-5.20); LYMPHOCYTES PERCENT AUTO 20 % (21-46); MONOCYTES ABSOLUTE AUTO 0.96 K/mm3 (0.16-1.47); MONOCYTES PERCENT AUTO 12 % (4-13); Mean Corpuscular HGB 29.8 pg (26.0-34.0); Mean Corpuscular HGB Conc 32.5 g/dL (31.5-36.5); Mean Corpuscular Volume 92 fL (80-100); Mean Platelet Volume 8.5 fL (9.1-12.4); NEUTROPHILS ABSOLUTE AUTO 4.72 K/mm3 (1.96-9.15); NEUTROPHILS PERCENT AUTO 60 % (41-73); Platelet Count 414 K/mm3 (150-400); RDW Coefficient Variation 13.2 % (11.7-14.2); Red Blood Cell Count 3.02 M/mm3 (3.80-5.20); White Blood Cell Count 7.81 K/mm3 (4.00-11.30)
[2018-04-12 10:12] LABS: Alanine Aminotransfer (ALT/SGP 13 U/L (12-78); Albumin, Blood 2.3 g/dL (3.4-5.0); Albumin/Globulin Ratio 0.5 (0.8-1.8); Alk Phos 72 U/L (50-136); Anion Gap 5 mmol/L (6-16); Aspartate Aminotrans (AST/SGOT 13 U/L (12-37); Bilirubin, Total 0.3 mg/dL (0.1-1.0); Blood Urea Nitrogen 8 mg/dL (8-24); Bun/Creatinine Ratio 14.1 (12.0-20.0); CO2, Blood 34 mmol/L (21-32); Chloride, Blood 99 mmol/L (98-108); Creatinine, Blood 0.57 mg/dL (0.40-1.00); Globulin, Blood 4.4 g/dL (2.2-4.0); Glomerular Filtration Rate >60 (60-); Glucose, Blood 97 mg/dL (70-99); Sodium, Blood 138 mmol/L (136-145); Total Protein, Blood 6.7 g/dL (6.4-8.2)
[2018-04-12] MEDS ORDERED: Cleocin HCl150 MG PO (10:50)
== END 2018-04-12 11:15 | disposition home or self-care (01) ==
LOC: ER 08:46
PROVIDERS: Emergency Medicine
DX: T81.4XXA Infection following a procedure, initial encounter (principal); L03.311 Cellulitis of abdominal wall; I10 Essential (primary) hypertension; F31.9 Bipolar disorder, unspecified; J45.909 Unspecified asthma, uncomplicated; Z87.891 Personal history of nicotine dependence; Z88.1 Allergy status to other antibiotic agents; Z88.0 Allergy status to penicillin; Z88.8 Allergy status to other drugs, medicaments and biological substances; Z91.018 Allergy to other foods; Z91.048 Other nonmedicinal substance allergy status; Z91.012 Allergy to eggs; Z91.040 Latex allergy status; Z79.51 Long term (current) use of inhaled steroids; Z79.899 Other long term (current) drug therapy
CPT/HCPCS: 80053; 85025; J3010

== ENCOUNTER 2018-07-18 10:42 | Day surgery (SDC) | payer OTHER ==
[~2018-07-18] VITALS: Ht 165.1 cm; Wt 115.7 kg
[~2018-07-18 10:42] MED LIST changes: +ALIVE WOMEN'S1 EAC1 PO; +CHOL10002 PO; +Cleocin HCl150 MG PO; +DHEA50 MG PO; +EPIPEN0.3 MG/0.3; +Flonase 0.05% N16 GM; +NAPR500EC PO; +Narcan 0.40.4 MG/ML; +QVAR REDIHALE10.6 G1 INH
== END 2018-07-18 13:42 | disposition home or self-care (01) ==
LOC: ORSCSDS 10:42
PROVIDERS: Internal Medicine Gastroenterology
PROC: 0DBP8ZX Excision of Rectum, Via Natural or Artificial Opening Endoscopic, Diagnostic (ICD-10-PCS; principal; 2018-07-18 12:00)
PROC: 0DBL8ZX Excision of Transverse Colon, Via Natural or Artificial Opening Endoscopic, Diagnostic (ICD-10-PCS; principal; 2018-07-18 12:00)
DX: Z87.19 Personal history of other diseases of the digestive system (principal); D12.3 Benign neoplasm of transverse colon; K62.1 Rectal polyp; Z86.010 Personal history of colon polyps; K64.8 Other hemorrhoids; K64.4 Residual hemorrhoidal skin tags; I10 Essential (primary) hypertension; J44.9 Chronic obstructive pulmonary disease, unspecified; G47.33 Obstructive sleep apnea (adult) (pediatric); K21.9 Gastro-esophageal reflux disease without esophagitis; E03.9 Hypothyroidism, unspecified; Z86.73 Personal history of transient ischemic attack (TIA), and cerebral infarction without residual deficits; E66.01 Morbid (severe) obesity due to excess calories; Z68.41 Body mass index [BMI] 40.0-44.9, adult; Z79.899 Other long term (current) drug therapy; Z99.81 Dependence on supplemental oxygen; F17.290 Nicotine dependence, other tobacco product, uncomplicated
CPT/HCPCS: J2405; J7120

== ENCOUNTER 2018-08-17 15:36 | Emergency (ER) | payer OTHER ==
[~2018-08-17] VITALS: Ht 162.6 cm; Wt 115.7 kg
== END 2018-08-17 18:10 | disposition home or self-care (01) ==
LOC: ER 15:36
DX: S90.121A Contusion of right lesser toe(s) without damage to nail, initial encounter (principal); F31.9 Bipolar disorder, unspecified; I10 Essential (primary) hypertension; J45.909 Unspecified asthma, uncomplicated; Z91.048 Other nonmedicinal substance allergy status; Z88.1 Allergy status to other antibiotic agents; Z88.0 Allergy status to penicillin; Z88.8 Allergy status to other drugs, medicaments and biological substances; Z91.018 Allergy to other foods; Z91.012 Allergy to eggs; Z91.040 Latex allergy status; Z79.899 Other long term (current) drug therapy; Z79.51 Long term (current) use of inhaled steroids; Z87.891 Personal history of nicotine dependence; X58.XXXA Exposure to other specified factors, initial encounter
CPT/HCPCS: 99283

== ENCOUNTER → 2018-09-20 | Outpatient (CLI) | payer OTHER | LOC: LAB 09:00 → LAB SHORT 09:00 | DX: Z51.81 Encounter for therapeutic drug level monitoring (principal); M43.16 Spondylolisthesis, lumbar region; G89.4 Chronic pain syndrome; Z79.899 Other long term (current) drug therapy | CPT/HCPCS: G0480 ==

== ENCOUNTER 2019-01-13 16:15 | Emergency (ER) | payer OTHER ==
[~2019-01-13] VITALS: Ht 162.6 cm; Wt 117.9 kg
== END 2019-01-13 20:23 | disposition home or self-care (01) ==
LOC: ER 16:15
DX: J44.9 Chronic obstructive pulmonary disease, unspecified (principal); Z99.81 Dependence on supplemental oxygen; M54.9 Dorsalgia, unspecified; G89.29 Other chronic pain; F32.9 Major depressive disorder, single episode, unspecified; I10 Essential (primary) hypertension; F31.9 Bipolar disorder, unspecified; Z87.891 Personal history of nicotine dependence; Z88.8 Allergy status to other drugs, medicaments and biological substances; Z91.018 Allergy to other foods; Z88.0 Allergy status to penicillin; Z91.048 Other nonmedicinal substance allergy status; Z91.012 Allergy to eggs; Z91.040 Latex allergy status; Z79.899 Other long term (current) drug therapy; Z79.891 Long term (current) use of opiate analgesic

== ENCOUNTER 2019-04-10 08:42 | Emergency (ER) | payer OTHER ==
[~2019-04-10] VITALS: Ht 165.1 cm; Wt 120.2 kg
[2019-04-10 10:14] LABS: BASOPHILS ABSOLUTE AUTO 0.03 K/mm3 (0.00-0.23); BASOPHILS PERCENT AUTO 0 % (0-2); EOSINOPHILS ABSOLUTE AUTO 0.36 K/mm3 (0.00-0.68); EOSINOPHILS PERCENT AUTO 3 % (0-6); Hematocrit 28.2 % (33.0-51.0); Hemoglobin 8.4 g/dL (11.5-16.0); IMMATURE GRAN ABSOLUTE AUTO 0.12 K/mm3 (0.00-0.10); IMMATURE GRAN PERCENT AUTO 1 % (0-1); LYMPHOCYTES ABSOLUTE AUTO 1.93 K/mm3 (0.84-5.20); LYMPHOCYTES PERCENT AUTO 14 % (21-46); MONOCYTES ABSOLUTE AUTO 1.17 K/mm3 (0.16-1.47); MONOCYTES PERCENT AUTO 9 % (4-13); Mean Corpuscular HGB 26.3 pg (26.0-34.0); Mean Corpuscular HGB Conc 29.8 g/dL (31.5-36.5); Mean Corpuscular Volume 88 fL (80-100); Mean Platelet Volume 8.9 fL (9.1-12.4); NEUTROPHILS ABSOLUTE AUTO 9.91 K/mm3 (1.96-9.15); NEUTROPHILS PERCENT AUTO 73 % (41-73); Platelet Count 317 K/mm3 (150-400); RDW Coefficient Variation 15.5 % (11.7-14.2); RDW Standard Deviation 50.3 fL (35.1-46.3); Red Blood Cell Count 3.19 M/mm3 (3.80-5.20); White Blood Cell Count 13.52 K/mm3 (4.00-11.30)
[2019-04-10] MEDS ORDERED: LIDO700A20 TOP (10:35)
[2019-04-10] MEDS ORDERED: ALEN70 PO (10:36)
[2019-04-10 10:37] LABS: Alanine Aminotransfer (ALT/SGP 17 U/L (12-78); Albumin, Blood 2.6 g/dL (3.4-5.0); Albumin/Globulin Ratio 0.6 (0.8-1.8); Alk Phos 91 U/L (50-136); Anion Gap 4 mmol/L (6-16); Aspartate Aminotrans (AST/SGOT 13 U/L (12-37); Bilirubin, Total 0.4 mg/dL (0.1-1.0); Blood Urea Nitrogen 18 mg/dL (8-24); Bun/Creatinine Ratio 24.6 (12.0-20.0); CO2, Blood 28 mmol/L (21-32); Calcium, Blood 8.6 mg/dL (8.5-10.1); Chloride, Blood 106 mmol/L (98-108); Creatinine, Blood 0.73 mg/dL (0.40-1.00); Globulin, Blood 4.5 g/dL (2.2-4.0); Glomerular Filtration Rate >60 (60-); Glucose, Blood 113 mg/dL (70-99); Potassium, Blood 5.2 mmol/L (3.5-5.5); Sodium, Blood 138 mmol/L (136-145); Total Protein, Blood 7.1 g/dL (6.4-8.2); Troponin I <0.015 ng/mL (0.000-0.040)
[2019-04-10] MEDS ORDERED: NAPR500ERA PO (10:38)
[2019-04-10] MEDS ORDERED: NARCAN4 MG NS (10:47)
[2019-04-10] MEDS ORDERED: ZIPR20 PO (10:48)
[2019-04-10] MEDS ORDERED: Cymbalta60 MG (10:48)
[2019-04-10] MEDS ORDERED: SUMA25 PO (10:49)
[2019-04-10] MEDS ORDERED: CLON.1 PO (10:50)
[2019-04-10] MEDS ORDERED: Prednisone20 MG PO (11:50)
[2019-04-10] MEDS ORDERED: LEVO750 PO (11:50)
== END 2019-04-10 12:20 | disposition home or self-care (01) ==
LOC: ER 08:42
PROVIDERS: Physician Assistant
DX: J44.1 Chronic obstructive pulmonary disease with (acute) exacerbation (principal); I10 Essential (primary) hypertension; F32.9 Major depressive disorder, single episode, unspecified; Z87.891 Personal history of nicotine dependence; Z88.8 Allergy status to other drugs, medicaments and biological substances; Z88.0 Allergy status to penicillin
CPT/HCPCS: 36415; 71046; 80053; 83880; 84484; 85025; 93005; 93010; 94640; 96374; 99285-25; J2930

== ENCOUNTER 2019-04-28 07:48 | Emergency (ER) | payer OTHER ==
[~2019-04-28] VITALS: Ht 162.6 cm; Wt 117.9 kg
[~2019-04-28 07:48] MED LIST changes: -ALBU2.5V5 INH; +ALBU2.5V5 NEB; +BENADRYL25 MG PO; +CLON.1 PO; +Cymbalta60 MG; +Imitrex50 MG PO; +LEVO750 PO; +LIDO700A20 TOP; -METCAR500 PO; +NARCAN4 MG NS; +Naprosyn500 MG PO; +OXYC5 PO; +Robaxin750 MG PO
[2019-04-28] MEDS ORDERED: MIRALAX17 GM PO (10:17)
[2019-04-28] MEDS ORDERED: Percocet 10-321 EACH PO (10:17)
[2019-04-29] MEDS ORDERED: LIDOCAINE HCL30 ML TOP (16:18)
[2019-04-29] MEDS ORDERED: BUDE6HFA INH (17:42)
== END 2019-04-28 11:05 | disposition home or self-care (01) ==
LOC: ER 07:48
DX: M54.5 Low back pain (principal); G89.29 Other chronic pain; E66.9 Obesity, unspecified; Z88.0 Allergy status to penicillin; Z91.048 Other nonmedicinal substance allergy status; Z88.8 Allergy status to other drugs, medicaments and biological substances; Z91.012 Allergy to eggs; Z88.1 Allergy status to other antibiotic agents; Z91.040 Latex allergy status; Z79.899 Other long term (current) drug therapy; Z79.891 Long term (current) use of opiate analgesic; Z79.52 Long term (current) use of systemic steroids; F32.9 Major depressive disorder, single episode, unspecified; I10 Essential (primary) hypertension; F31.9 Bipolar disorder, unspecified; J44.9 Chronic obstructive pulmonary disease, unspecified; F17.290 Nicotine dependence, other tobacco product, uncomplicated
CPT/HCPCS: 73502; 96372; 99283-25; J1170

== ENCOUNTER 2019-04-29 08:17 | Observation (INO) | payer OTHER ==
[~2019-04-29] VITALS: Ht 162.6 cm; Wt 120.0 kg
[~2019-04-29 08:17] MED LIST changes: +MIRALAX17 GM PO; +Percocet 10-321 EACH PO
[2019-04-29 10:45] LABS: Source, Urine Clean Catch
[2019-04-29 10:55] LABS: BASOPHILS ABSOLUTE AUTO 0.02 K/mm3 (0.00-0.23); BASOPHILS PERCENT AUTO 0 % (0-2); EOSINOPHILS ABSOLUTE AUTO 0.09 K/mm3 (0.00-0.68); EOSINOPHILS PERCENT AUTO 1 % (0-6); Hematocrit 35.8 % (33.0-51.0); Hemoglobin 10.4 g/dL (11.5-16.0); IMMATURE GRAN ABSOLUTE AUTO 0.02 K/mm3 (0.00-0.10); IMMATURE GRAN PERCENT AUTO 0 % (0-1); LYMPHOCYTES ABSOLUTE AUTO 0.99 K/mm3 (0.84-5.20); LYMPHOCYTES PERCENT AUTO 15 % (21-46); MONOCYTES ABSOLUTE AUTO 0.67 K/mm3 (0.16-1.47); MONOCYTES PERCENT AUTO 10 % (4-13); Mean Corpuscular HGB Conc 29.1 g/dL (31.5-36.5); Mean Corpuscular Volume 90 fL (80-100); Mean Platelet Volume 8.3 fL (9.1-12.4); NEUTROPHILS ABSOLUTE AUTO 4.71 K/mm3 (1.96-9.15); NEUTROPHILS PERCENT AUTO 73 % (41-73); Platelet Count 376 K/mm3 (150-400); RDW Coefficient Variation 15.9 % (11.7-14.2); RDW Standard Deviation 52.1 fL (35.1-46.3)
[2019-04-29 10:55] LABS: Bilirubin, Urine Neg (Neg); Blood, Urine Neg (Neg); Glucose Qualitative, Urine Neg (Neg); Ketones, Urine Neg (Neg); Leukocyte Esterase, Urine Neg (Neg); Nitrite, Urine Neg (Neg); Protein, Urine Neg (Neg); Urobilinogen, Urine NORM (Normal); pH, Urine 6.5 (5.0-8.0)
[2019-04-29 10:59] LABS: Appearance, Urine Clear (Clear); Color, Urine Yellow (P-Yellow)
[2019-04-29 11:13] LABS: U Amphetamine Screen Not Detected; U Barbituate Screen Not Detected; U Benzodiazapine Screen Not Detected; U Buprenorphine Screen Not Detected; U Cannabinoids Screen Not Detected; U Cocaine Screen Not Detected; U Methadone Screen Not Detected; U Methamphetamine Screen Not Detected; U Opiates Screen DETECTED; U Oxycodone Screen DETECTED; U Phencyclidine Screen Not Detected; U Propoxyphene Screen Not Detected
[2019-04-29 11:15] LABS: Alanine Aminotransfer (ALT/SGP 23 U/L (12-78); Albumin, Blood 3.5 g/dL (3.4-5.0); Albumin/Globulin Ratio 0.8 (0.8-1.8); Alk Phos 135 U/L (50-136); Anion Gap 2 mmol/L (6-16); Aspartate Aminotrans (AST/SGOT 20 U/L (12-37); Bilirubin, Total 0.4 mg/dL (0.1-1.0); Blood Urea Nitrogen 10 mg/dL (8-24); Bun/Creatinine Ratio 15.9 (12.0-20.0); CO2, Blood 38 mmol/L (21-32); Calcium, Blood 9.6 mg/dL (8.5-10.1); Chloride, Blood 100 mmol/L (98-108); Creatinine, Blood 0.63 mg/dL (0.40-1.00); Globulin, Blood 4.6 g/dL (2.2-4.0); Glomerular Filtration Rate >60 (60-); Glucose, Blood 111 mg/dL (70-99); Sodium, Blood 140 mmol/L (136-145); Total Protein, Blood 8.1 g/dL (6.4-8.2)
[2019-04-29] MEDS ORDERED: LIDOCAINE HCL30 ML TOP (16:18)
--- NOTE | 2019-04-29 17:21 | NUR ---
PT ARRIVED TO PCU 3 VIA BED FROM MEDICAL, SHE IS VERY SLEEPY, BUT WILL WAKE AND SPEAK, BUT VERY IRRITABLE, STATES HER BACK HURTS. WHEN NURSE SAID YOU LOOK KINDOF SLEEPY, SHE BECAME ANGRY, STARTED SWEARING AND SAID I'M JUST MEDITATING. LUNGS ARE CLEAR T/O, RESP EVEN AND UNLABORED, NO COUGH NOTED, HRR, TELE IN PLACE RUNNING SR IN 90'S PER MONITOR, SEE STRIP, NO EDEMA NOTED, PPP+2, CAP REFILL <3SEC, VS STABLE, AFEBRILE, IV SITE IS CLEAR AND PATENT, BTX4, ABD LARGE SOFT NONTENDER, HAS ATTENDS IN PLACE, SKIN C/W/D, VERITO, DEBORA, CALL LIGHT IN REACH.
[2019-04-29] MEDS ORDERED: BUDE6HFA INH (17:42)
--- NOTE | 2019-04-30 00:46 | NUR ---
Assumed care of pt at approx 1900. Pt lethargic upon initial encounter. VSS. No apparent sign of distress. See shift assessment for detailed assessment. Pt labile, confused, and agitated at times. This RN attempts to redirect pt using calm therapeutic techniques. Pt instructed on appropriate use of call light. pt not using call light appropriately, calls constantly. Pt is alert and orientedx3 but with obvious confusion and forgetfulness. LR running at 75ml/hr per orders. PO medications taken whole with water. Bed in lowest and locked position. Q2 turns tolerated poorly by pt. Pt uses bedpan and is incont. attends in place and dry at this time. Bed alarm on. Will continue to monitor.
[2019-04-30 04:16] LABS: Hematocrit 31.8 % (33.0-51.0); Hemoglobin 9.7 g/dL (11.5-16.0); Mean Corpuscular HGB 26.4 pg (26.0-34.0); Mean Corpuscular HGB Conc 30.5 g/dL (31.5-36.5); NRBC ABSOLUTE 0.02 K/mm3 (0.00-0.02); NRBC Auto 0.3 /100 WBC (0.0-0.2); RDW Coefficient Variation 15.8 % (11.7-14.2); Red Blood Cell Count 3.67 M/mm3 (3.80-5.20); White Blood Cell Count 6.73 K/mm3 (4.00-11.30)
[2019-04-30 04:17] LABS: Mean Corpuscular Volume 87 fL (80-100); Mean Platelet Volume 8.7 fL (9.1-12.4); Platelet Count 234 K/mm3 (150-400)
[2019-04-30 04:25] LABS: Anion Gap 5 mmol/L (6-16); Blood Urea Nitrogen 10 mg/dL (8-24); Bun/Creatinine Ratio 18.3 (12.0-20.0); CO2, Blood 35 mmol/L (21-32); Chloride, Blood 94 mmol/L (98-108); Creatinine, Blood 0.55 mg/dL (0.40-1.00); Glomerular Filtration Rate >60 (60-); Glucose, Blood 92 mg/dL (70-99); Potassium, Blood 3.7 mmol/L (3.5-5.5); Sodium, Blood 134 mmol/L (136-145)
--- NOTE | 2019-04-30 05:14 | NUR ---
Shift Summary Pt continues to call approx every 5-10 minutes. pt educated and redirected multiple times on appropriate call light use. No acute medical changes this shift, no events on tele, VSS, no apparent sign of distress, denies SOB, denies chest pain or pressure. While pt sleeps, o2 requirement increases from 2.5L to 3.5L to maintain o2 saturations >90%. Pt with nonproductive, wet cough. educated pt on deep breathing, air flutter valve use and pt compliant with education regarding improved cough technique. Pt able to turn self in bed with redirection and encouragement. attends in place, dry at this time. Pt used bedpan for voids this shift. Pt currently resting in bed. Will continue to monitor and update.
--- NOTE | 2019-04-30 07:43 | NUR ---
PT HAS BEEN ON AIR PERSONALITY LIGHT TASHI EVERY FIVE MINUTES WITH MANY NEEDS FOR THINGS SHE CAN DO. SHE IS NO REDIRECTABLE, SHE STATES SHE CAN'T TURN HERSELF, BECOMES LOUD. SHE HAS HAD ALL HER NEEDS MET A NUMBER OF TIMES. SHE IS A/OX3, STATES SHE DID NOT SLEEP LAST NIGHT, AND NEEDS SOMETHING FOR ANXIETY. LUNGS ARE CLEAR IN UPPER HERNANDEZ, A BIT COURSE IN BASES, IS CURRENTLY ON 2 LITERS 02 VIA N/C, RESP EVEN AND UNLABORED, NO COUGH NOTED, BUT WAS REPORTED SHE BROUGHT UP SOME SPUTUM LAST NIGHT, HRR, TELE IN PLACE RUNNING SR PER MONITOR SEE STRIP, NO EDEMA NOTED, PPP+2, CAP REFILL <3SEC, VS STABLE, AFEBRILE, IV SITE IS CLEAR AND PATENT, BTX4, ABD FLAT SOFT NONTENDER, IS VOIDING IN ATTENDS, IS ABLE TO USE BED SHANNON, SKIN HAS SOME BRUISINGS, DEBORA SELLERS, CALL LIGHT IN REACH.
--- NOTE | 2019-04-30 09:30 | NUR ---
THIS RN WENT TO DISCUSS DISCHARGE PLAN WITH PATIENT. PATIENT STATES HER CAREGIVER MIGHT BE ABLE TO GIVE HER A RIDE. CAREGIVER CALLED AND STATES IF THE PATIENT CANNOT MAKE IT UP HER STAIRS IT WOULD BE EASIER TO HAVE [facility] TRANSPORT HER.
--- NOTE | 2019-04-30 09:45 | NUR ---
DARYN AND THIS RN TRANSFERRED PATIENT TO CHAIR TO SEE HOW SHE DOES TRASNFERRING SINCE SHE HAS DC ORDERS. PT IS VERY ANXIOUS AND DRAMATIC WHEN GETTING UP. PT REASSURED THAT SHE IS DOING WELL AND DOING MOST OF THE WORK TO TRASNFER INDEPENDENTLY. PT TRASNFERRED TO THE CHAIR WITH MINIMAL ASSISTANCE. PT STATES SHE IS UNCOMFORTABLE IN THE CHAIR AND IS REQUESTING TO GO BACK TO BED. PT ASSISTED BACK TO BED, PT REPOSITIONED FOR COMFORT. AM MEDS GIVEN WITHOUT DIFFICUTLY, PT REFUSED TO TAKE DIURETIC BECAUSE SHE IS GOING HOME AND DOESN'T WANT TO BE INCONTINENT.
--- NOTE | 2019-04-30 10:45 | NUR ---
CALL PLACED TO DR. MUSE BECAUSE PATIENT IS CONCERNED SHE CANNOT MAKE IT UP HER STAIRS WHEN SHE GETS HOME. ORDER PLACED FOR PT EVAL.
--- NOTE | 2019-04-30 11:50 | NUR ---
MIKKI PT HERE TO SEE THE PATIENT, RECOMMENDATION FOR PATIENT TO GO HOME WITH HOME HEALTH. DISCUSSED THIS WITH PATIENT AND CAREGIVER. SAVANNAH WHITE SIDEWALL TIRE BUFFER RN WAS HERE TO TALK WITH PATIENT ABOUT POSSIBLY HAVING A CAREGIVER PRESENT WHEN SHE GETS HOME. ODESSA LEFT MESSAGE WITH PATIENTS PRODUCTION EDITOR.
--- NOTE | 2019-04-30 13:08 | NUR ---
[place]ES[place] POLICE DETECTIVE HAS SET UP A RIDE FOR PATIENT TO BE DISCAHRGED. PT WILL BE DISCHARGED HOME AT 1400 VIA [facility].
--- NOTE | 2019-04-30 14:15 | NUR ---
PT CHARLIE'D HOME WITH [facility] VIA .
== END 2019-04-30 14:16 | disposition home health service (06) ==
LOC: ER 08:17 → MEDS 08:18 → PCU 16:50
PROVIDERS: Emergency Medicine; ADMIT Hospitalist
DX: T40.2X1A Poisoning by other opioids, accidental (unintentional), initial encounter (principal); G92 Toxic encephalopathy; R60.0 Localized edema; I10 Essential (primary) hypertension; J44.9 Chronic obstructive pulmonary disease, unspecified; F31.9 Bipolar disorder, unspecified; M81.0 Age-related osteoporosis without current pathological fracture; M19.90 Unspecified osteoarthritis, unspecified site; K21.9 Gastro-esophageal reflux disease without esophagitis; Z88.8 Allergy status to other drugs, medicaments and biological substances; Z91.018 Allergy to other foods; Z91.030 Bee allergy status; Z91.012 Allergy to eggs; Z91.040 Latex allergy status; Z88.1 Allergy status to other antibiotic agents; Z88.0 Allergy status to penicillin; Z79.899 Other long term (current) drug therapy
CPT/HCPCS: 36415; 74177; 80048; 80053; 81003; 85025; 94760; 96372; 97162; 97530; 99285-25; G0378; J1650; J7120; Q0175; Q9967

== ENCOUNTER 2019-06-06 10:17 | Emergency (ER) | payer OTHER ==
[~2019-06-06] VITALS: Ht 167.6 cm; Wt 113.4 kg
[~2019-06-06 10:17] MED LIST changes: +LIDOCAINE HCL30 ML TOP
[2019-06-06 10:47] LABS: BASOPHILS ABSOLUTE AUTO 0.06 K/mm3 (0.00-0.23); BASOPHILS PERCENT AUTO 1 % (0-2); EOSINOPHILS ABSOLUTE AUTO 0.24 K/mm3 (0.00-0.68); EOSINOPHILS PERCENT AUTO 2 % (0-6); Hematocrit 37.2 % (33.0-51.0); Hemoglobin 11.3 g/dL (11.5-16.0); IMMATURE GRAN ABSOLUTE AUTO 0.03 K/mm3 (0.00-0.10); IMMATURE GRAN PERCENT AUTO 0 % (0-1); LYMPHOCYTES PERCENT AUTO 20 % (21-46); MONOCYTES ABSOLUTE AUTO 0.88 K/mm3 (0.16-1.47); MONOCYTES PERCENT AUTO 9 % (4-13); Mean Corpuscular HGB 26.3 pg (26.0-34.0); Mean Corpuscular HGB Conc 30.4 g/dL (31.5-36.5); Mean Corpuscular Volume 87 fL (80-100); Mean Platelet Volume 8.3 fL (9.1-12.4); NEUTROPHILS ABSOLUTE AUTO 6.91 K/mm3 (1.96-9.15); NEUTROPHILS PERCENT AUTO 68 % (41-73); Platelet Count 448 K/mm3 (150-400); RDW Coefficient Variation 15.9 % (11.7-14.2); RDW Standard Deviation 50.7 fL (35.1-46.3); Red Blood Cell Count 4.29 M/mm3 (3.80-5.20); White Blood Cell Count 10.12 K/mm3 (4.00-11.30)
[2019-06-06 11:11] LABS: Alanine Aminotransfer (ALT/SGP 18 U/L (12-78); Albumin/Globulin Ratio 0.7 (0.8-1.8); Alk Phos 116 U/L (50-136); Anion Gap 8 mmol/L (6-16); Aspartate Aminotrans (AST/SGOT 20 U/L (12-37); Bilirubin, Total 0.4 mg/dL (0.1-1.0); Blood Urea Nitrogen 7 mg/dL (8-24); Bun/Creatinine Ratio 12.9 (12.0-20.0); CO2, Blood 25 mmol/L (21-32); Calcium, Blood 8.8 mg/dL (8.5-10.1); Chloride, Blood 103 mmol/L (98-108); Creatinine, Blood 0.54 mg/dL (0.40-1.00); Globulin, Blood 4.6 g/dL (2.2-4.0); Glomerular Filtration Rate >60 (60-); Glucose, Blood 107 mg/dL (70-99); Potassium, Blood 4.7 mmol/L (3.5-5.5); Sodium, Blood 136 mmol/L (136-145); Total Protein, Blood 7.6 g/dL (6.4-8.2)
[2019-06-06] MEDS ORDERED: ZIPR20 PO (11:30)
[2019-06-06] MEDS ORDERED: ALEN70 PO (11:30)
[2019-06-06] MEDS ORDERED: PERP8 PO (11:30)
[2019-06-06] MEDS ORDERED: MONT10T PO (11:30)
[2019-06-06] MEDS ORDERED: OMEP20ER PO (11:31)
[2019-06-06] MEDS ORDERED: MUCUS RELIEF C200 MG PO (11:31)
[2019-06-06] MEDS ORDERED: POTA10T PO (11:31)
[2019-06-06] MEDS ORDERED: GABA800 PO (11:31)
[2019-06-06] MEDS ORDERED: DULO60 PO (11:31)
[2019-06-06] MEDS ORDERED: TORSE20 PO (11:31)
[2019-06-06] MEDS ORDERED: RAMI5 PO (11:32)
[2019-06-06] MEDS ORDERED: OXYC5 PO (11:32)
[2019-06-06] MEDS ORDERED: NAPR500 PO (11:32)
[2019-06-06] MEDS ORDERED: CHOL10002 PO (11:33)
[2019-06-06] MEDS ORDERED: SUMA25 PO (11:33)
[2019-06-06] MEDS ORDERED: CETI5 PO (11:33)
[2019-06-06] MEDS ORDERED: Multivitamin1 EAC1 PO (11:34)
[2019-06-06] MEDS ORDERED: KRILL OIL 3501 EACH PO (11:34)
[2019-06-06] MEDS ORDERED: DHEA25 MG PO (11:34)
[2019-06-06] MEDS ORDERED: GINKGO BILOBA120 MG PO (11:35)
[2019-06-06] MEDS ORDERED: Vitamin B Comple1 EA PO (11:35)
[2019-06-06] MEDS ORDERED: TURMERIC500 M2 PO (11:36)
[2019-06-06] MEDS ORDERED: CLON.1 PO (11:36)
[2019-06-06] MEDS ORDERED: Robaxin750 MG PO (11:36)
[2019-06-06] MEDS ORDERED: PROM25 PO (11:37)
== END 2019-06-06 18:53 | disposition home or self-care (01) ==
LOC: ER 10:17
PROVIDERS: Emergency Medicine
DX: K52.9 Noninfective gastroenteritis and colitis, unspecified (principal); I10 Essential (primary) hypertension; F31.9 Bipolar disorder, unspecified; J44.9 Chronic obstructive pulmonary disease, unspecified; Z88.8 Allergy status to other drugs, medicaments and biological substances; Z88.0 Allergy status to penicillin; Z91.018 Allergy to other foods; Z91.048 Other nonmedicinal substance allergy status; Z91.040 Latex allergy status; Z79.899 Other long term (current) drug therapy; F17.290 Nicotine dependence, other tobacco product, uncomplicated
CPT/HCPCS: 36415; 74176; 80053; 85025; 99284-25

== ENCOUNTER → 2019-06-12 | Outpatient (CLI) | payer OTHER ==
[~2019-06-12] MED LIST changes: +DHEA25 MG PO; +GINKGO BILOBA120 MG PO; +KRILL OIL 3501 EACH PO; +MUCUS RELIEF C200 MG PO; +Multivitamin1 EAC1 PO; +NAPR500 PO; +SUMA25 PO; +TURMERIC500 M2 PO; +Vitamin B Comple1 EA PO
[2019-06-12 17:12] LABS: Adenovirus F 40/41 Not Detected (NOT DETECT); Astrovirus Not Detected (NOT DETECT); Campylobacter Sp Not Detected (NOT DETECT); Cryptosporidium Not Detected (NOT DETECT); Cyclospora Cayetanensis Not Detected (NOT DETECT); E. Coli O157 Not Detected (NOT DETECT); Entamoeba Histolytica Not Detected (NOT DETECT); Enteroaggregative E. coli-EAEC Not Detected (NOT DETECT); Enteropathogenic E. coli-EPEC Not Detected (NOT DETECT); Enterotoxigenic E. coli-ETEC Not Detected (NOT DETECT); Giardia Lamblia Not Detected (NOT DETECT); Norovirus GI/GII Not Detected (NOT DETECT); Plesiomonas Shigelloides Not Detected (NOT DETECT); Rotavirus A Not Detected (NOT DETECT); Salmonella Sp Not Detected (NOT DETECT); Sapovirus Not Detected (NOT DETECT); Shiga Toxin-prod E. coli-STEC Not Detected (NOT DETECT); Shigella/Enteroin E. coli-EIEC Not Detected (NOT DETECT); Vibrio Cholerae Not Detected (NOT DETECT); Vibrio Sp Not Detected (NOT DETECT); Yersinia Enterocolitica Not Detected (NOT DETECT)
== END | disposition home or self-care (01) ==
LOC: LAB SHORT 06:54 → LAB 06:54
PROVIDERS: Emergency Medicine
DX: R19.7 Diarrhea, unspecified (principal)
CPT/HCPCS: 0097U

== ENCOUNTER 2019-09-18 11:52 | Emergency (ER) | payer OTHER ==
[~2019-09-18] VITALS: Ht 160 cm; Wt 158.8 kg
[2019-09-18] MEDS ORDERED: FLUC150A PO (13:07)
[2019-09-18] MEDS ORDERED: Clotrimazole15 GM (13:07)
[2019-09-18 14:24] LABS: BASOPHILS ABSOLUTE AUTO 0.07 K/mm3 (0.00-0.23); BASOPHILS PERCENT AUTO 1 % (0-2); EOSINOPHILS PERCENT AUTO 5 % (0-6); Hematocrit 32.8 % (33.0-51.0); IMMATURE GRAN ABSOLUTE AUTO 0.24 K/mm3 (0.00-0.10); IMMATURE GRAN PERCENT AUTO 2 % (0-1); LYMPHOCYTES ABSOLUTE AUTO 1.95 K/mm3 (0.84-5.20); LYMPHOCYTES PERCENT AUTO 13 % (21-46); MONOCYTES ABSOLUTE AUTO 2.03 K/mm3 (0.16-1.47); MONOCYTES PERCENT AUTO 14 % (4-13); Mean Corpuscular HGB 27.3 pg (26.0-34.0); Mean Corpuscular HGB Conc 30.5 g/dL (31.5-36.5); Mean Corpuscular Volume 90 fL (80-100); Mean Platelet Volume 8.6 fL (9.1-12.4); NEUTROPHILS ABSOLUTE AUTO 9.73 K/mm3 (1.96-9.15); NEUTROPHILS PERCENT AUTO 66 % (41-73); NRBC ABSOLUTE 0.02 K/mm3 (0.00-0.02); NRBC Auto 0.1 /100 WBC (0.0-0.2); Platelet Count 374 K/mm3 (150-400); RDW Coefficient Variation 15.9 % (11.7-14.2); RDW Standard Deviation 52.3 fL (35.1-46.3); Red Blood Cell Count 3.66 M/mm3 (3.80-5.20); White Blood Cell Count 14.72 K/mm3 (4.00-11.30)
[2019-09-18 14:36] LABS: Alanine Aminotransfer (ALT/SGP 25 U/L (12-78); Albumin, Blood 2.3 g/dL (3.4-5.0); Albumin/Globulin Ratio 0.5 (0.8-1.8); Alk Phos 146 U/L (50-136); Anion Gap 4 mmol/L (6-16); Aspartate Aminotrans (AST/SGOT 17 U/L (12-37); Bilirubin, Total 0.4 mg/dL (0.1-1.0); Blood Urea Nitrogen 10 mg/dL (8-24); Bun/Creatinine Ratio 16.1 (12.0-20.0); CO2, Blood 35 mmol/L (21-32); Calcium, Blood 8.7 mg/dL (8.5-10.1); Chloride, Blood 99 mmol/L (98-108); Creatinine, Blood 0.62 mg/dL (0.40-1.00); Globulin, Blood 4.7 g/dL (2.2-4.0); Glomerular Filtration Rate >60 (60-); Glucose, Blood 92 mg/dL (70-99); Potassium, Blood 4.4 mmol/L (3.5-5.5); Sodium, Blood 138 mmol/L (136-145)
[2019-09-18] MEDS ORDERED: Benadryl 50 mg50 MG PO (15:07)
[2019-09-18] MEDS ORDERED: METPRE4DP PO (15:07)
== END 2019-09-18 16:05 | disposition home or self-care (01) ==
LOC: ER 11:52
PROVIDERS: Emergency Medicine
DX: L50.0 Allergic urticaria (principal); F32.9 Major depressive disorder, single episode, unspecified; I10 Essential (primary) hypertension; J44.9 Chronic obstructive pulmonary disease, unspecified; Z87.891 Personal history of nicotine dependence
CPT/HCPCS: 80053; 83605; 85025; 87040; 96374; 96375; 99283-25; J1200; J2930

== ENCOUNTER 2019-09-24 08:33 | Emergency (ER) | payer OTHER ==
[~2019-09-24] VITALS: Ht 162.6 cm; Wt 117.9 kg
[~2019-09-24 08:33] MED LIST changes: +Benadryl 50 mg50 MG PO; +Clotrimazole15 GM
[2019-09-24] MEDS ORDERED: Bactrim Ds Tab1 EACH PO (10:25)
[2019-09-24] MEDS ORDERED: Roxicodone5 MG PO (10:25)
== END 2019-09-24 11:51 | disposition home or self-care (01) ==
LOC: ER 08:33
DX: L02.811 Cutaneous abscess of head [any part, except face] (principal); L03.811 Cellulitis of head [any part, except face]; I10 Essential (primary) hypertension; F31.9 Bipolar disorder, unspecified; M79.7 Fibromyalgia; M19.90 Unspecified osteoarthritis, unspecified site; J43.9 Emphysema, unspecified; F17.290 Nicotine dependence, other tobacco product, uncomplicated; Z88.0 Allergy status to penicillin; Z88.8 Allergy status to other drugs, medicaments and biological substances; Z91.018 Allergy to other foods; Z88.1 Allergy status to other antibiotic agents; Z91.012 Allergy to eggs; Z91.041 Radiographic dye allergy status; Z79.899 Other long term (current) drug therapy
CPT/HCPCS: 10061; 70450; 90471; 90714; 99284-25

== ENCOUNTER → 2020-04-21 | Outpatient (CLI) | payer OTHER ==
[~2020-04-21] MED LIST changes: +Bactrim Ds Tab1 EACH PO; +Roxicodone5 MG PO
[2020-04-21 21:23] LABS: Adenovirus F 40/41 Not Detected (NOT DETECT); Astrovirus Not Detected (NOT DETECT); Campylobacter Sp Not Detected (NOT DETECT); Cryptosporidium Not Detected (NOT DETECT); Cyclospora Cayetanensis Not Detected (NOT DETECT); E. Coli O157 Not Detected (NOT DETECT); Entamoeba Histolytica Not Detected (NOT DETECT); Enteroaggregative E. coli-EAEC Not Detected (NOT DETECT); Enteropathogenic E. coli-EPEC Not Detected (NOT DETECT); Enterotoxigenic E. coli-ETEC Not Detected (NOT DETECT); Giardia Lamblia Not Detected (NOT DETECT); Norovirus GI/GII Not Detected (NOT DETECT); Plesiomonas Shigelloides Not Detected (NOT DETECT); Rotavirus A Not Detected (NOT DETECT); Salmonella Sp Not Detected (NOT DETECT); Sapovirus Not Detected (NOT DETECT); Shiga Toxin-prod E. coli-STEC Not Detected (NOT DETECT); Shigella/Enteroin E. coli-EIEC Not Detected (NOT DETECT); Vibrio Cholerae Not Detected (NOT DETECT); Vibrio Sp Not Detected (NOT DETECT); Yersinia Enterocolitica Not Detected (NOT DETECT)
== END | disposition home or self-care (01) ==
LOC: LAB SHORT 15:19 → LAB SRC 15:19
PROVIDERS: Registered Nurse
DX: R19.4 Change in bowel habit (principal)
CPT/HCPCS: 0097U

== ENCOUNTER 2021-03-26 07:48 | Emergency (ER) | payer OTHER ==
[~2021-03-26] VITALS: Ht 162.6 cm; Wt 136.1 kg
[2021-03-26] MEDS ORDERED: FAMO20 PO (10:09)
[2021-03-26] MEDS ORDERED: PRED20 PO (10:09)
[2021-03-26] MEDS ORDERED: EPIPEN 2-P0.3 MG/0.1 IM (10:09)
== END 2021-03-26 10:47 | disposition home or self-care (01) ==
LOC: ER 07:48
DX: T78.40XA Allergy, unspecified, initial encounter (principal); Z79.899 Other long term (current) drug therapy; Z91.040 Latex allergy status; Z91.012 Allergy to eggs; Z88.8 Allergy status to other drugs, medicaments and biological substances
CPT/HCPCS: 96374; 96375; 99283-25; J2930

== ENCOUNTER → 2022-05-25 | Outpatient (CLI) | payer OTHER ==
[~2022-05-25] MED LIST changes: +EPIPEN 2-P0.3 MG/0.1 IM; +FAMO20 PO
[2022-05-25 15:20] LABS: Source, Urine Clean Catch
[2022-05-25 17:40] LABS: Appearance, Urine Clear (Clear); Bilirubin, Urine Neg (Neg); Blood, Urine Neg (Neg); Color, Urine Amber (P-Yellow); Glucose Qualitative, Urine Neg (Neg); Ketones, Urine Neg (Neg); Leukocyte Esterase, Urine Neg (Neg); Nitrite, Urine Neg (Neg); Protein, Urine Neg (Neg); Urobilinogen, Urine NORM (Normal); pH, Urine 6.5 (5.0-8.0)
== END | disposition home or self-care (01) ==
LOC: LAB 15:18 → LAB SHORT 15:18
PROVIDERS: Registered Nurse
DX: R30.0 Dysuria (principal)
CPT/HCPCS: 81003

== ENCOUNTER 2022-08-24 13:26 | Observation (INO) | payer OTHER ==
[~2022-08-24] VITALS: Ht 162.6 cm; Wt 117.8 kg
[2022-08-24 16:24] LABS: BASOPHILS ABSOLUTE AUTO 0.02 K/mm3 (0.00-0.23); BASOPHILS PERCENT AUTO 0 % (0-2); EOSINOPHILS ABSOLUTE AUTO 0.31 K/mm3 (0.00-0.68); EOSINOPHILS PERCENT AUTO 5 % (0-6); Hematocrit 38.3 % (33.0-51.0); Hemoglobin 12.4 g/dL (11.5-16.0); IMMATURE GRAN ABSOLUTE AUTO 0.01 K/mm3 (0.00-0.10); IMMATURE GRAN PERCENT AUTO 0 % (0-1); LYMPHOCYTES ABSOLUTE AUTO 1.59 K/mm3 (0.84-5.20); LYMPHOCYTES PERCENT AUTO 26 % (21-46); MONOCYTES ABSOLUTE AUTO 0.64 K/mm3 (0.16-1.47); MONOCYTES PERCENT AUTO 11 % (4-13); Mean Corpuscular HGB 30.2 pg (26.0-34.0); Mean Corpuscular HGB Conc 32.4 g/dL (31.5-36.5); Mean Corpuscular Volume 93 fL (80-100); Mean Platelet Volume 8.7 fL (9.1-12.4); NEUTROPHILS ABSOLUTE AUTO 3.52 K/mm3 (1.96-9.15); NEUTROPHILS PERCENT AUTO 58 % (41-73); Platelet Count 249 K/mm3 (150-400); RDW Standard Deviation 43.8 fL (35.1-46.3); White Blood Cell Count 6.09 K/mm3 (4.00-11.30)
[2022-08-24 16:41] LABS: Albumin, Blood 3.2 g/dL (3.4-5.0); Albumin/Globulin Ratio 0.9 (0.8-1.8); Bilirubin, Total 0.3 mg/dL (0.1-1.0); Bun/Creatinine Ratio 11.7 (12.0-20.0); Calcium, Blood 9.6 mg/dL (8.5-10.1); Creatinine, Blood 0.6 mg/dL (0.40-1.00); Globulin, Blood 3.6 g/dL (2.2-4.0); Total Protein, Blood 6.8 g/dL (6.4-8.2)
--- NOTE | 2022-08-24 16:53 | NUR ---
ADMISSION NOTE: PT ARRIVED 1445 VIA GURNEY AND TRANSFERED INTO BED BY STAFF. PT WAS AT HOME AND WAS INSTRUCTED BY PCP DR. SOLANO TO COME TO THE ER. PT A&O, PLEASANT AND HAVING PAIN. PT IV INSERTION UNSUCCESSFUL AND A DIFFICULT STICK. PT RECEVIED PAIN MEDICATION PER EMAR PROTOCOL. PT OREINTATED TO THE ROOM.
--- NOTE | 2022-08-24 18:01 | NUR ---
SHIFT SUMMARY: PT A&O PLEASANT AND ANXIOUS. PT HAVING 8/10 PAIN, HEADACHE AND HIP PAIN. PT REPOSTIONED AND MEDICATED PER EMAR PROTOCOL. PT ABLE TO RELAX AND REST IN BED AFTER REASSESSMENT. PT BEING SEEN BY DR. SOLANO TO EXPLAIN THE COLOSCOPY PREDURE AND PREP SCHEDULED FOR TOMORROW. PT IN BED WITH CALL LIGHT WITHIN REACH.
--- NOTE | 2022-08-24 18:21 | NUR ---
THIS LOGISTICS PROJECT MANAGER HAS REVIEWED ALL NOTES AND ASESSMENTS AND AGREES WITH THEM BY ANDREW KILLIAN.
--- NOTE | 2022-08-25 03:53 | NUR ---
CALL FROM DR SAWYER; UNABLE TO SEE WHAT TIME PT IS TO GO FOR COLONOSCOPY DUE TO [facility] EMR DOWNTIME. WOULD LIKE PT TO START SUPERBOWEL PREP NOW. AWAITING IV PLACEMENT TO ADMINISTER ZOFRAN PRIOR TO ADMINISTRATION OF PREP AND FENTANYL PRIOR TO INSERTION OF RECTAL TUBE AND HE STATED OK TO POSTPONE THOSE UNTIL AFTER ADMINISTRATION OF BOWEL PREP. BOWEL PREP ADMINISTERED. IV SUCCESSFULLY PLACED BY JOSELYN ESPINOZA RN. MEDS ADMINISTERED AND RECTAL TUBE PLACED.
[2022-08-25 05:17] LABS: BASOPHILS ABSOLUTE AUTO 0.04 K/mm3 (0.00-0.23); BASOPHILS PERCENT AUTO 1 % (0-2); EOSINOPHILS ABSOLUTE AUTO 0.27 K/mm3 (0.00-0.68); EOSINOPHILS PERCENT AUTO 4 % (0-6); Hematocrit 42.3 % (33.0-51.0); Hemoglobin 13.5 g/dL (11.5-16.0); IMMATURE GRAN ABSOLUTE AUTO 0.01 K/mm3 (0.00-0.10); IMMATURE GRAN PERCENT AUTO 0 % (0-1); LYMPHOCYTES PERCENT AUTO 25 % (21-46); MONOCYTES PERCENT AUTO 9 % (4-13); Mean Corpuscular HGB 29.9 pg (26.0-34.0); Mean Corpuscular HGB Conc 31.9 g/dL (31.5-36.5); Mean Corpuscular Volume 94 fL (80-100); NEUTROPHILS ABSOLUTE AUTO 4.33 K/mm3 (1.96-9.15); NEUTROPHILS PERCENT AUTO 62 % (41-73); Platelet Count 281 K/mm3 (150-400); RDW Coefficient Variation 12.7 % (11.7-14.2); RDW Standard Deviation 43.8 fL (35.1-46.3); Red Blood Cell Count 4.51 M/mm3 (3.80-5.20); White Blood Cell Count 6.95 K/mm3 (4.00-11.30)
[2022-08-25 05:54] LABS: Albumin, Blood 3.2 g/dL (3.4-5.0); Albumin/Globulin Ratio 0.8 (0.8-1.8); Bilirubin, Total 0.5 mg/dL (0.1-1.0); Bun/Creatinine Ratio 17.2 (12.0-20.0); Calcium, Blood 9.3 mg/dL (8.5-10.1); Creatinine, Blood 0.46 mg/dL (0.40-1.00); Globulin, Blood 4.2 g/dL (2.2-4.0); Magnesium, Blood 2.2 mg/dL (1.6-2.4); Potassium, Blood 4.9 mmol/L (3.5-5.5); Total Protein, Blood 7.4 g/dL (6.4-8.2)
--- NOTE | 2022-08-25 06:05 | NUR ---
OR RN SUMMARY: A&Ox4 WITH INTERMITTENT DROWSINESS. ANXIOUS AT BASELINE AND CALLS FREQUENTLY, OFTEN NOT REALIZING SHE HAS DONE SO. BP AND HR ELEVATED EARLY THIS MORNING FOLLOWING INSERTION OF RECTAL TUBE AND CONSUMPTION OF SUPERBOWEL PREP; IMPROVED UPON RECHECK. RECTAL TUBE PATENT AND DRAINING. BAG CHANGED AT 0530. MEDICATED x4 T/O SHIFT FOR PAIN; x2 OXYCODONE 10MG, x1 APAP 650MG AND ONE 25MCG FENTANYL PRIOR TO RECTAL TUBE INSERTION D/T EXISTING SCIATIC NERVE PAIN CAUSING RT HIP PAIN. C/O CHRONIC PAIN. O2 VIA NC AT BASELINE, WHICH SHE USES AT HOME. SCHEDULED FOR COLONSCOPY AND EGD TODAY; UNSURE OF TIME, THOUGH PT STATES 0900. IV PLACED RT WRIST RUNNING NS 75mL/hr. HAS BEEN AWAKE MAJORITY OF THE NIGHT AND IS NOW SLEEPING. PUREWICK FOR URINARY INCONTINENCE PATENT AND DRAINING TO SUCTION. NO ACUTE OVERNIGHT EVENTS. WILL REPORT TO ONCOMING RN.
--- NOTE | 2022-08-25 16:03 | NUR ---
HYPERTENSION Received T.O. from Dr. Rojas for 25 mg PO hydralazine q4 prn for sbp greater than 160.
--- NOTE | 2022-08-25 17:38 | NUR ---
Shift Summary AOx3, awakens to verbal stimuli. Scopes rescheduled for tomorrow due to lack of bowel clearance. Did receive T.O. from Dr. Anton for another bowel prep this morning which still did not clear bowels. Also performed two tap water enemas without success per order from Dr. Anton. Many XL watery brown stools requiring multiple bed changes. Mild generalized pain. Diet changed to clear liq for dinner, will be NPO at midnight and plan for another bowel prep tonight. NS @ 75 has been d/c'd by Dr. Rojas per T.O. LR infusing at O. Rectal tube removed so tap water enemas can be administered, patient refusing another rectal tube insert.
--- NOTE | 2022-08-26 04:41 | NUR ---
SHIFT SUMMARY PATIENT IS ALERT AND ORIENTED WITH OCCASIONAL CONFUSION. PATIENT HAS BEEN HEAVY PROBATE CLERK LIGHT. PATIENT HAS HAD NO ACUTE EVENTS THIS SHIFT. PATIENT HAS 0600 BOWL PREP SCHEDULED AND PATIENT HAS BEEN REMINDED OF SUCH AND HAS STATED SHE DOES NOT WANT IT OR PROCEDURE, WILL REVISIT AT 0600. PATIENT HAS COMPLAINED OF NAUSEA AND MEDICATED PER EMAR. PATIENT HAS NOT COMPLAINED OF PAIN, SOB OR VOMTTING THIS SHIFT. BED IN LOWEST AND LOCKED POSITION. WILL MONITOR UNTIL SHIFT CHANGE.
[2022-08-26] MEDS ORDERED: MONT10T PO (12:10)
[2022-08-26] MEDS ORDERED: CATAPRES0.1 MG PO (12:11)
[2022-08-26] MEDS ORDERED: ALBU2.5V5 INH (12:12)
--- NOTE | 2022-08-26 15:39 | NUR ---
Discharge Summary Refused bowel prep and procedure this morning, colonoscopy cancelled. Patient requesting discharge home immediately. Discussed with Dr. Anton and Dr. Rojas. D/C back to home. Patient does not have caregivers on the weekend (this is her baseline) and often calls for meal delivery per patient state. Lizzeth (weekday caregiver) was contacted and she is out of town for the weekend and that patient is aware. Lizzeth left message with patient explaining where extra house santos has been placed for ease of entering home. Per Lizzeth, patient self transfers to commode during the weekend with there is no caregiver assistance. No new meds. Medicated for generalized "all over" pain and migraine headache per EMAR with mild effectiveness. Reviewed d/c papers, copy given. Patient to call and schedule f/u appt. Transport ([facility]) called, hand picker time is around 1630. WCTM until then.
== END 2022-08-26 16:42 | disposition home or self-care (01) ==
LOC: MEDS 13:26 → PRE IP 08-25 09:30 → EDSTATUS 08-25 10:15 → ORD 08-25 10:15 → PRE IP 08-25 10:30 → MEDS 08-26 16:42
PROVIDERS: Internal Medicine; ADMIT Internal Medicine Gastroenterology
DX: K62.89 Other specified diseases of anus and rectum (principal); J44.9 Chronic obstructive pulmonary disease, unspecified; I10 Essential (primary) hypertension; Q79.60 Ehlers-Danlos syndrome, unspecified; M79.7 Fibromyalgia; F31.9 Bipolar disorder, unspecified; G89.29 Other chronic pain; M54.50 Low back pain, unspecified; K21.9 Gastro-esophageal reflux disease without esophagitis; G47.33 Obstructive sleep apnea (adult) (pediatric); E03.9 Hypothyroidism, unspecified; M10.9 Gout, unspecified; K76.0 Fatty (change of) liver, not elsewhere classified; K63.3 Ulcer of intestine; R74.01 Elevation of levels of liver transaminase levels; R76.8 Other specified abnormal immunological findings in serum; K25.9 Gastric ulcer, unspecified as acute or chronic, without hemorrhage or perforation; Z96.611 Presence of right artificial shoulder joint; Z86.010 Personal history of colon polyps; Z99.81 Dependence on supplemental oxygen; Z90.49 Acquired absence of other specified parts of digestive tract; Z87.891 Personal history of nicotine dependence; Z53.29 Procedure and treatment not carried out because of patient's decision for other reasons; Z88.8 Allergy status to other drugs, medicaments and biological substances; Z88.1 Allergy status to other antibiotic agents; Z88.5 Allergy status to narcotic agent; Z91.012 Allergy to eggs; Z91.040 Latex allergy status; Z91.018 Allergy to other foods; Z91.048 Other nonmedicinal substance allergy status
CPT/HCPCS: 36415; 80053; 83735; 85025; 94760; 96374; 96375; 96376; A9270; G0378; J2405; J3010; J7030; J7120; Q0175

== ENCOUNTER 2023-04-27 10:11 | Emergency (ER) | payer OTHER ==
[~2023-04-27] VITALS: Ht 162.6 cm; Wt 113.4 kg
[~2023-04-27 10:11] MED LIST changes: +ALBU2.5V5 INH; +CATAPRES0.1 MG PO
[2023-04-27 10:58] LABS: Appearance, Urine Clear (Clear); Bilirubin, Urine Neg (Neg); Blood, Urine Neg (Neg); Color, Urine Yellow (P-Yellow); Glucose Qualitative, Urine Neg (Neg); Ketones, Urine Neg (Neg); Leukocyte Esterase, Urine Neg (Neg); Nitrite, Urine Neg (Neg); Source, Urine Straight Cath; Urobilinogen, Urine NORM (Normal)
[2023-04-27 11:08] LABS: Protein, Urine Neg (Neg); Specific Gravity, Urine 1.015 (1.003-1.022)
[2023-04-27 11:27] LABS: BASOPHILS ABSOLUTE AUTO 0.04 K/mm3 (0.00-0.23); BASOPHILS PERCENT AUTO 1 % (0-2); EOSINOPHILS ABSOLUTE AUTO 0.21 K/mm3 (0.00-0.68); EOSINOPHILS PERCENT AUTO 4 % (0-6); Hematocrit 42.4 % (33.0-51.0); Hemoglobin 13.8 g/dL (11.5-16.0); IMMATURE GRAN ABSOLUTE AUTO 0.01 K/mm3 (0.00-0.10); IMMATURE GRAN PERCENT AUTO 0 % (0-1); LYMPHOCYTES ABSOLUTE AUTO 1.61 K/mm3 (0.84-5.20); LYMPHOCYTES PERCENT AUTO 32 % (21-46); MONOCYTES ABSOLUTE AUTO 0.51 K/mm3 (0.16-1.47); MONOCYTES PERCENT AUTO 10 % (4-13); Mean Corpuscular HGB 31.5 pg (26.0-34.0); Mean Corpuscular HGB Conc 32.5 g/dL (31.5-36.5); Mean Corpuscular Volume 97 fL (80-100); Mean Platelet Volume 9.4 fL (9.1-12.4); NEUTROPHILS ABSOLUTE AUTO 2.62 K/mm3 (1.96-9.15); NEUTROPHILS PERCENT AUTO 52 % (41-73); Platelet Count 208 K/mm3 (150-400); RDW Coefficient Variation 12.6 % (11.7-14.2); Red Blood Cell Count 4.38 M/mm3 (3.80-5.20)
[2023-04-27 11:44] LABS: Albumin, Blood 3.3 g/dL (3.4-5.0); Albumin/Globulin Ratio 0.9 (0.8-1.8); Bilirubin, Total 0.4 mg/dL (0.1-1.0); Bun/Creatinine Ratio 14.4 (12.0-20.0); Calcium, Blood 9.4 mg/dL (8.5-10.1); Creatinine, Blood 0.49 mg/dL (0.40-1.00); Globulin, Blood 3.5 g/dL (2.2-4.0); Potassium, Blood 5.1 mmol/L (3.5-5.5); Total Protein, Blood 6.8 g/dL (6.4-8.2)
[2023-04-27] MEDS ORDERED: DULOXETINE HCL60 M1 PO (12:01)
[2023-04-27] MEDS ORDERED: BANOPHEN50 M1 PO (12:03)
[2023-04-27] MEDS ORDERED: BUTALB-ACETAMI1 EAC5 PO (12:04)
[2023-04-27] MEDS ORDERED: Methocarbamol750 MG PO (12:07)
[2023-04-27] MEDS ORDERED: MONT10T PO (12:08)
[2023-04-27] MEDS ORDERED: OXYC10TA19 PO (12:10)
[2023-04-27 15:49] VITALS: BP 138/68
== END 2023-04-27 16:02 | disposition home or self-care (01) ==
LOC: ER 10:11
PROVIDERS: Student in an Organized Health Care Education/Training Program
DX: R41.0 Disorientation, unspecified (principal); R30.0 Dysuria; K59.00 Constipation, unspecified; R35.89 Other polyuria; M54.9 Dorsalgia, unspecified; G89.29 Other chronic pain; J43.9 Emphysema, unspecified; M79.7 Fibromyalgia; F31.9 Bipolar disorder, unspecified; F17.290 Nicotine dependence, other tobacco product, uncomplicated; I10 Essential (primary) hypertension; Z91.018 Allergy to other foods; Z88.1 Allergy status to other antibiotic agents; Z88.0 Allergy status to penicillin; Z91.048 Other nonmedicinal substance allergy status; Z91.030 Bee allergy status; Z91.012 Allergy to eggs; Z91.040 Latex allergy status; Z88.6 Allergy status to analgesic agent; Z88.8 Allergy status to other drugs, medicaments and biological substances; Z88.4 Allergy status to anesthetic agent; Z79.899 Other long term (current) drug therapy
CPT/HCPCS: 71045; 80053; 81003; 85025; 99284-25; A9270; P9612

== ENCOUNTER 2023-05-25 11:22 | Emergency (ER) | payer OTHER ==
[~2023-05-25] VITALS: Ht 162.6 cm; Wt 117.9 kg
[~2023-05-25 11:22] MED LIST changes: +AIMOVIG AU140 MG/1 M SC; +BANOPHEN50 M1 PO; +BUTALB-ACETAMI1 EAC5 PO; +CALCIUM PO; +COMBIVENT RESPIM4 G1 INH; +DULOXETINE HCL60 M1 PO; +FERSU300 PO; +HYDHCL25 PO; +Methocarbamol750 MG PO; +PRAV20 PO; +QVAR REDIHALE10.6 G3 INH; +STIOLTO RESPIMAT4 G1; +VISBIOME 112.51 EACH PO; +ZYRTEC10 M2 PO
[2023-05-25 12:06] LABS: BASOPHILS ABSOLUTE AUTO 0.06 K/mm3 (0.00-0.23); BASOPHILS PERCENT AUTO 1 % (0-2); EOSINOPHILS ABSOLUTE AUTO 0.11 K/mm3 (0.00-0.68); EOSINOPHILS PERCENT AUTO 1 % (0-6); Hematocrit 38.5 % (33.0-51.0); Hemoglobin 11.9 g/dL (11.5-16.0); IMMATURE GRAN ABSOLUTE AUTO 0.03 K/mm3 (0.00-0.10); IMMATURE GRAN PERCENT AUTO 0 % (0-1); LYMPHOCYTES ABSOLUTE AUTO 1.92 K/mm3 (0.84-5.20); LYMPHOCYTES PERCENT AUTO 22 % (21-46); MONOCYTES ABSOLUTE AUTO 1.32 K/mm3 (0.16-1.47); MONOCYTES PERCENT AUTO 15 % (4-13); Mean Corpuscular HGB 30.6 pg (26.0-34.0); Mean Corpuscular HGB Conc 30.9 g/dL (31.5-36.5); Mean Corpuscular Volume 99 fL (80-100); Mean Platelet Volume 8.4 fL (9.1-12.4); NEUTROPHILS ABSOLUTE AUTO 5.12 K/mm3 (1.96-9.15); NEUTROPHILS PERCENT AUTO 60 % (41-73); Platelet Count 581 K/mm3 (150-400); RDW Coefficient Variation 12.4 % (11.7-14.2); Red Blood Cell Count 3.89 M/mm3 (3.80-5.20); White Blood Cell Count 8.56 K/mm3 (4.00-11.30)
[2023-05-25 12:34] LABS: Albumin, Blood 2.3 g/dL (3.4-5.0); Albumin/Globulin Ratio 0.4 (0.8-1.8); Bilirubin, Total 0.1 mg/dL (0.1-1.0); Bun/Creatinine Ratio 16.1 (12.0-20.0); Calcium, Blood 9.9 mg/dL (8.5-10.1); Creatinine, Blood 0.68 mg/dL (0.40-1.00); Globulin, Blood 5.8 g/dL (2.2-4.0); Magnesium, Blood 2.2 mg/dL (1.6-2.4); Potassium, Blood 4.3 mmol/L (3.5-5.5); Total Protein, Blood 8.1 g/dL (6.4-8.2)
[2023-05-25 12:37] LABS: Source, Urine Straight Cath
[2023-05-25 13:01] LABS: Bilirubin, Urine Neg (Neg); Blood, Urine 2+ (Neg); Color, Urine Yellow (P-Yellow); Glucose Qualitative, Urine Neg (Neg); Ketones, Urine Neg (Neg); Leukocyte Esterase, Urine Neg (Neg); Nitrite, Urine Neg (Neg); Protein, Urine 1+ (Neg); Specific Gravity, Urine 1.015 (1.003-1.022); Urobilinogen, Urine NORM (Normal)
[2023-05-25 13:49] LABS: Appearance, Urine Hazy (Clear)
[2023-05-25 13:50] LABS: Amorphous Light (0-Heavy); Bacteria Mod /hpf; Mucus Light (0-Heavy); Red Blood Cells, Urine 0-2 /hpf (0-2); Squamous Epithelial Cells Rare /hpf (Few); White Blood Cells, Urine 0-2 /hpf (0-5)
[2023-05-25] MEDS ORDERED: DICY20 PO (14:51)
[2023-05-25 16:15] VITALS: BP 161/66
== END 2023-05-25 16:42 | disposition home or self-care (01) ==
LOC: ER 11:22
PROVIDERS: Student in an Organized Health Care Education/Training Program
DX: K59.00 Constipation, unspecified (principal); I10 Essential (primary) hypertension; Z91.018 Allergy to other foods; Z88.1 Allergy status to other antibiotic agents; Z88.0 Allergy status to penicillin; Z88.8 Allergy status to other drugs, medicaments and biological substances; Z91.048 Other nonmedicinal substance allergy status; Z91.030 Bee allergy status; Z91.012 Allergy to eggs; Z91.040 Latex allergy status; Z88.6 Allergy status to analgesic agent; Z79.899 Other long term (current) drug therapy; Z87.891 Personal history of nicotine dependence
CPT/HCPCS: 51701; 51798; 74177; 80053; 81001; 83735; 84145; 85025; 87086; 93005; 93010; 96374-59; 99285-25; A9270; J1885; Q9967

== ENCOUNTER → 2023-07-02 | Outpatient (CLI) | payer OTHER ==
[~2023-07-02] MED LIST changes: +DICY20 PO
[2023-07-02 14:46] LABS: Source, Urine Foley catheter
[2023-07-02 18:00] LABS: Appearance, Urine Hazy (Clear); Blood, Urine Neg (Neg); Color, Urine Yellow (P-Yellow); Glucose Qualitative, Urine Neg (Neg); Ketones, Urine Neg (Neg); Leukocyte Esterase, Urine 3+ (Neg); Nitrite, Urine Neg (Neg); Protein, Urine 2+ (Neg); Specific Gravity, Urine 1.025 (1.003-1.022); Urobilinogen, Urine NORM (Normal)
[2023-07-02 18:21] LABS: Bilirubin, Urine 1+ (Neg)
[2023-07-02 18:22] LABS: Amorphous Light (0-Heavy); Bacteria Mod /hpf; Calcium Oxalate Crystals Few /hpf; Red Blood Cells, Urine Not Seen /hpf (0-2); Squamous Epithelial Cells Rare /hpf (Few); White Blood Cells, Urine 25-50 /hpf (0-5)
== END | disposition home or self-care (01) ==
LOC: LAB 14:43 → LAB SHORT 14:43
PROVIDERS: Registered Nurse
DX: N39.0 Urinary tract infection, site not specified (principal)
CPT/HCPCS: 81001; 87086

== ENCOUNTER 2023-07-15 12:30 | Emergency (ER) | payer OTHER ==
[~2023-07-15] VITALS: Ht 165.1 cm; Wt 108.9 kg
[2023-07-15 14:31] LABS: Source, Urine Straight Cath
[2023-07-15 14:42] LABS: Alanine Aminotransfer (ALT/SGP 57 U/L (12-78); Albumin, Blood 2.9 g/dL (3.4-5.0); Albumin/Globulin Ratio 0.7 (0.8-1.8); Alk Phos 164 U/L (50-136); Anion Gap Unable to Calculate mmol/L (6-16); Aspartate Aminotrans (AST/SGOT 42 U/L (12-37); Bilirubin, Total 0.3 mg/dL (0.1-1.0); Blood Urea Nitrogen 13 mg/dL (8-24); Bun/Creatinine Ratio 27.4 (12.0-20.0); CO2, Blood 44 mmol/L (21-32); Calcium, Blood 9.6 mg/dL (8.5-10.1); Chloride, Blood 96 mmol/L (98-108); Creatinine, Blood 0.47 mg/dL (0.40-1.00); Glomerular Filtration Rate 105 (60-); Glucose, Blood 126 mg/dL (70-99); Potassium, Blood 4.6 mmol/L (3.5-5.5); Sodium, Blood 139 mmol/L (136-145); Total Protein, Blood 6.9 g/dL (6.4-8.2)
[2023-07-15 14:51] LABS: Appearance, Urine Hazy (Clear); Bilirubin, Urine Neg (Neg); Blood, Urine 2+ (Neg); Color, Urine Yellow (P-Yellow); Glucose Qualitative, Urine Neg (Neg); Ketones, Urine Neg (Neg); Leukocyte Esterase, Urine 3+ (Neg); Nitrite, Urine Pos (Neg); Protein, Urine 1+ (Neg); Specific Gravity, Urine 1.015 (1.003-1.022); Urobilinogen, Urine NORM (Normal)
[2023-07-15 15:00] LABS: BASOPHILS ABSOLUTE AUTO 0.04 K/mm3 (0.00-0.23); BASOPHILS PERCENT AUTO 0 % (0-2); EOSINOPHILS ABSOLUTE AUTO 0.35 K/mm3 (0.00-0.68); EOSINOPHILS PERCENT AUTO 4 % (0-6); Hematocrit 39.5 % (33.0-51.0); Hemoglobin 12.6 g/dL (11.5-16.0); IMMATURE GRAN ABSOLUTE AUTO 0.02 K/mm3 (0.00-0.10); IMMATURE GRAN PERCENT AUTO 0 % (0-1); LYMPHOCYTES PERCENT AUTO 25 % (21-46); MONOCYTES ABSOLUTE AUTO 0.93 K/mm3 (0.16-1.47); MONOCYTES PERCENT AUTO 10 % (4-13); Mean Corpuscular HGB Conc 31.9 g/dL (31.5-36.5); Mean Corpuscular Volume 97 fL (80-100); Mean Platelet Volume 8.9 fL (9.1-12.4); NEUTROPHILS ABSOLUTE AUTO 5.77 K/mm3 (1.96-9.15); NEUTROPHILS PERCENT AUTO 61 % (41-73); Platelet Count 281 K/mm3 (150-400); RDW Coefficient Variation 12.8 % (11.7-14.2); RDW Standard Deviation 46.1 fL (35.1-46.3); Red Blood Cell Count 4.06 M/mm3 (3.80-5.20); White Blood Cell Count 9.51 K/mm3 (4.00-11.30)
[2023-07-15 15:15] LABS: Bacteria Many /hpf; Hyaline Casts 0-2 /lpf (0-2); Red Blood Cells, Urine 25-50 /hpf (0-2); Squamous Epithelial Cells Mod /hpf (Few); Transitional Epithelial Cells Few /hpf (0-Rare); White Blood Cells, Urine TNTC /hpf (0-5)
[2023-07-15] MEDS ORDERED: LEVFLO500 PO (16:01)
[2023-07-15 16:50] VITALS: BP 158/78
== END 2023-07-15 16:55 | disposition home or self-care (01) ==
LOC: ER 12:30
PROVIDERS: Emergency Medicine
DX: N39.0 Urinary tract infection, site not specified (principal); J44.9 Chronic obstructive pulmonary disease, unspecified; I10 Essential (primary) hypertension; Z87.891 Personal history of nicotine dependence; Z79.899 Other long term (current) drug therapy; Z88.1 Allergy status to other antibiotic agents; Z91.018 Allergy to other foods; Z88.0 Allergy status to penicillin; Z91.09 Other allergy status, other than to drugs and biological substances; Z91.040 Latex allergy status; Z88.8 Allergy status to other drugs, medicaments and biological substances
CPT/HCPCS: 51701; 80053; 81001; 85025; 87077; 87086; 87186; 99285; A9270; J7030

== ENCOUNTER → 2023-07-27 | Outpatient (CLI) | payer OTHER ==
[2023-07-27 11:45] LABS: Source, Urine Straight Cath
[2023-07-27 12:53] LABS: Appearance, Urine Clear (Clear); Bilirubin, Urine Neg (Neg); Blood, Urine Neg (Neg); Color, Urine Yellow (P-Yellow); Glucose Qualitative, Urine Neg (Neg); Ketones, Urine Neg (Neg); Leukocyte Esterase, Urine 1+ (Neg); Nitrite, Urine Neg (Neg); Protein, Urine Neg (Neg); Urobilinogen, Urine NORM (Normal)
[2023-07-27 13:07] LABS: Amorphous Mod (0-Heavy); Bacteria Few /hpf; Red Blood Cells, Urine Not Seen /hpf (0-2); Squamous Epithelial Cells Rare /hpf (Few)
== END | disposition home or self-care (01) ==
LOC: LAB SHORT 11:43 → LAB 11:43
PROVIDERS: Registered Nurse
DX: N39.0 Urinary tract infection, site not specified (principal)
CPT/HCPCS: 81001; 87086

== ENCOUNTER 2023-08-22 12:04 | Inpatient (IN) | payer OTHER ==
[~2023-08-22] VITALS: Wt 101.6 kg
[~2023-08-22 12:04] MED LIST changes: +MULVITA PO; -Multivitamin1 EAC1 PO; -STIOLTO RESPIMAT4 G1; +STIOLTO RESPIMAT4 G1 INH; +VITAMIN D31000 UNI1 PO
[2023-08-22 12:15] VITALS: BP 122/51
[2023-08-22] MEDS ORDERED: GABA800 PO (12:35)
[2023-08-22] MEDS ORDERED: OXYC5 PO (12:38)
[2023-08-22 14:15] VITALS: BP 127/53
--- NOTE | 2023-08-22 17:44 | NUR ---
THIS NURSE GAVE REPORT TO NOHEMY KILLIAN ON MEDICAL FLOOR. PATIENT WAS TRANSPORTED IN HER BED. ALL OF HER PERSONAL ITEMS IN THE ROOM WERE TAKEN WITH HER.
[2023-08-22 19:39] VITALS: BP 155/76
[2023-08-22] MEDS ORDERED: BUTALB-ACETAMI1 EAC5 PO (23:01)
[2023-08-22] MEDS ORDERED: MIRALAX11914 PO (23:02)
[2023-08-22] MEDS ORDERED: Calcium Carbon500 MG PO (23:04)
[2023-08-22] MEDS ORDERED: [UNRECOGNIZED DRUG - OTHER] PO (23:08)
[2023-08-22] MEDS ORDERED: FERROUS SULFAT325 M3 PO (23:10)
[2023-08-22] MEDS ORDERED: BUSPIRONE HCL5 M6 PO (23:11)
[2023-08-22] MEDS ORDERED: BANOPHEN50 M1 PO (23:12)
[2023-08-22] MEDS ORDERED: Ventolin5 MG/1 ML INH (23:19)
[2023-08-22] MEDS ORDERED: CATAPRES0.1 MG PO (23:20)
[2023-08-22] MEDS ORDERED: ZIPR20 PO ×2 (23:21→23:22)
--- NOTE | 2023-08-23 00:04 | NUR ---
MED RECONCILIATION THE MED REC IS NOW COMPLETED CORRECTLY FOR HER HOME MEDS.
[2023-08-23 03:05] VITALS: BP 148/84
--- NOTE | 2023-08-23 05:31 | NUR ---
SHIFT SUMMARY PT A&O X4. PT STARTED BOWEL PREP AT APPROX 1900 ON 08/22. PT TO DRINK 2 BOTTLES OF BOWEL PREP. HOWEVER DR WEI AT BEDSIDE AND STATED TO GIVE THE PT THE 2ND BOTTLE AT 7AM ON 08/23. SANJUANA TO PLACE ORDERS FOR DAY 2 OF BOWEL PREP. PT IS INCONTINENT OF URINE/BOWEL. ATTENDS IN PLACE. BARRIER CREAM APPLIED. PT ON CLEAR LIQUID DIET. COLONOSCOPY SCHEDULED FOR SUNDAY. [employer]OWER [employer]. PT IS CURRENTLY ON 4 L O2 WITH SATS ABOVE 92%. PT IS ABLE TO MAKE NEEDS KNOWN. BED KEPT IN THE LOWEST POSITION WITH CALL LIGHT IN REACH.
[2023-08-23 07:15] LABS: BASOPHILS ABSOLUTE AUTO 0.03 K/mm3 (0.00-0.23); BASOPHILS PERCENT AUTO 0 % (0-2); EOSINOPHILS ABSOLUTE AUTO 0.16 K/mm3 (0.00-0.68); EOSINOPHILS PERCENT AUTO 2 % (0-6); Hematocrit 39.2 % (33.0-51.0); Hemoglobin 12.7 g/dL (11.5-16.0); IMMATURE GRAN ABSOLUTE AUTO 0.02 K/mm3 (0.00-0.10); IMMATURE GRAN PERCENT AUTO 0 % (0-1); LYMPHOCYTES ABSOLUTE AUTO 1.66 K/mm3 (0.84-5.20); LYMPHOCYTES PERCENT AUTO 20 % (21-46); MONOCYTES ABSOLUTE AUTO 1.02 K/mm3 (0.16-1.47); MONOCYTES PERCENT AUTO 12 % (4-13); Mean Corpuscular HGB 30.3 pg (26.0-34.0); Mean Corpuscular HGB Conc 32.4 g/dL (31.5-36.5); Mean Corpuscular Volume 94 fL (80-100); Mean Platelet Volume 9.1 fL (9.1-12.4); NEUTROPHILS PERCENT AUTO 66 % (41-73); Platelet Count 312 K/mm3 (150-400); RDW Coefficient Variation 11.9 % (11.7-14.2); RDW Standard Deviation 40.4 fL (35.1-46.3); Red Blood Cell Count 4.19 M/mm3 (3.80-5.20); White Blood Cell Count 8.39 K/mm3 (4.00-11.30)
[2023-08-23 07:21] VITALS: BP 154/72
[2023-08-23 07:41] LABS: Bun/Creatinine Ratio 14.4 (12.0-20.0); Calcium, Blood 9.2 mg/dL (8.5-10.1); Creatinine, Blood 0.49 mg/dL (0.40-1.00); Potassium, Blood 3.8 mmol/L (3.5-5.5)
[2023-08-23 15:40] VITALS: BP 123/99
--- NOTE | 2023-08-23 16:45 | NUR ---
SHIFT SUMMARY PT AWAKE DURING SHIFT REPORT, RESTING QUIELTY LYING FLAT, PER PT. PT WORKING ON BOWEL PREP. LARGER AMT OF THICK LIQUID STOOL OUT LATER IN AM; X2. DR PALACIO IN TO CHECK ON PT IN AM. DR SAWYER HERE THIS AFTERNOON; NEW ORDERS PLACED. PT STARTED ON ADDITIONAL BOWEL PREP PER ORDERS. LARGE AMT OF THICK LIQUID STOOL OUT AGAIN ALONG WITH 2 EX LRG AMTS OF HARD STOOL. PT CLEANED AND LINEN CHANGED AFTER EACH STOOL. ADDITIONAL BOWEL PREP TO BE GIVEN AT 1800 PER ORDERS. PT CAN BE IRRITABLE AND DEMANDING AT TIMES, BUT HAS CO-OPERATED WITH CLEAN UP. CALL LT IN REACH. ABLE TO MAKE NEEDS KNOWN.
--- NOTE | 2023-08-23 18:37 | NUR ---
PT CONTINUED TO HAVE THICK BROWN STOOL WITH SOLID CHUNKS AT LAST CHANGING. DR SAWYER NOTIFIED OF PT'S BOWEL STATUS. NEW ORDERS PLACED. PT TO BE GIVEN MIRALAX NOW WITH LOT'S OF WATER.
[2023-08-23 19:26] VITALS: BP 136/78
[2023-08-24 02:22] VITALS: BP 129/70
--- NOTE | 2023-08-24 07:23 | NUR ---
Shift Summary Rcvd call from Dr. Villaotro early in the shift who ordered two additional bottles of bowel prep. Pt incontinent stools and voids, frequent loose stools d/t bowel prep. Stool color started dark brown at the start of shift and progressed to light brown/yellow by the end. Pt c/o severe pain this AM but is strict NPO as of 0600, no IV pain medications available. Passed this information onto day shift nurse. Pt is bedbound. NPO except water until 0600 expecting scope procedure today. O2 lowered to 2.5L which pt states is her base line at home, no c/o sob, O2 sat > 95%. AOx4
[2023-08-24 07:31] VITALS: BP 129/53
[2023-08-24 07:48] VITALS: BP 140/52
--- NOTE | 2023-08-24 08:02 | NUR ---
PT HAS POWERGLIDE TO LEFT UPPER ARM THAT FLUSHES WELL AND FLOWS TO GRAVITY.
--- NOTE | 2023-08-24 08:33 | NUR ---
08/24/[address] BOO'S ANESTHESIA RECORD
[2023-08-24 15:12] VITALS: BP 104/82
--- NOTE | 2023-08-24 16:49 | NUR ---
SHIFT SUMMARY PT AWAKE AT START OF SHIFT, NPO FOR COLONOSCOPY THIS AM. PT TAKEN DOWN AT START OF SHIFT FOR SCOPE, BUT UNABLE TO DO PROCEDURE D/T INCOMPLETE BOWEL PREP. PT RETURNED TO . DR SAWYER CALLED TO REPORT NEW ORDERS PLACED. PT TO HAVE NGT PLACED AND GOLYTELY TO BE GIVEN. PT HAD AGREED TO NGT, BUT LATER DECLINED. DR SAWYER UPDATED. GOLYTELY STARTED PER ORDERS. PT ABLE TO COMPLETE AND IS NOW HAVING SOME CLEARING OF BOWELS. DR SAWYER UPDATED ON BOWEL PREP STATUS. ADDITIONAL GOLYTELY TO BE ORDERED AND PT TO CONTINUE DRINKING UNTIL STOOLS ARE CLEAR AND THEN PT MAY STOP. CALL LT IN REACH. ABLE TO MAKE NEEDS KNOWN.
[2023-08-24 19:41] VITALS: BP 123/53
[2023-08-25] VITALS (8 sets, daily range): BP systolic 134–170; BP diastolic 56–101
--- NOTE | 2023-08-25 06:27 | NUR ---
Shift Summary Pt drinking bowel prep for the 1st half of the night, bowel movements are now a light yellow. Incontinent voids and BMs, bed and attends changed as needed. Pt c/o nausea and migrane pain, hospitalist ordered zofran and a one time dose of 10 mg oxy. Pt AOx4, bedrest at baseline. Around 0000 pt was concerned about hypoglycemia, I checked her blood glucose which was at 71. I have her a half cup of clear Starry soda. Other than that pt is NPO except water until 0600 and then strict NPO awaiting colonoscopy.
[2023-08-25 07:50] LABS: BASOPHILS ABSOLUTE AUTO 0.03 K/mm3 (0.00-0.23); BASOPHILS PERCENT AUTO 0 % (0-2); EOSINOPHILS PERCENT AUTO 4 % (0-6); Hematocrit 35.8 % (33.0-51.0); Hemoglobin 11.6 g/dL (11.5-16.0); IMMATURE GRAN ABSOLUTE AUTO 0.03 K/mm3 (0.00-0.10); IMMATURE GRAN PERCENT AUTO 0 % (0-1); LYMPHOCYTES PERCENT AUTO 23 % (21-46); MONOCYTES ABSOLUTE AUTO 0.65 K/mm3 (0.16-1.47); MONOCYTES PERCENT AUTO 9 % (4-13); Mean Corpuscular HGB 30.4 pg (26.0-34.0); Mean Corpuscular HGB Conc 32.4 g/dL (31.5-36.5); Mean Corpuscular Volume 94 fL (80-100); NEUTROPHILS ABSOLUTE AUTO 4.62 K/mm3 (1.96-9.15); NEUTROPHILS PERCENT AUTO 63 % (41-73); Platelet Count 254 K/mm3 (150-400); RDW Standard Deviation 41.4 fL (35.1-46.3); Red Blood Cell Count 3.81 M/mm3 (3.80-5.20); White Blood Cell Count 7.33 K/mm3 (4.00-11.30)
--- NOTE | 2023-08-25 08:04 | NUR ---
08/25/23 0804 Marcio Mcmahon History, Chart, Medications and Allergies reviewed before start of procedure.MONITOR INTACT WITH CONTINUOUS PULSE OXIMETRY, CONTINUOUS END TITAL CO2, AND INTERMITTENT BLOOD PRESSURE.3-LEAD EKG REVIEWED WITH PHYSICIAN PRIOR TO START OF PROCEDURE.O2 VIA POM INTACT THROUGHOUT SEDATION/PROCEDURE.See Anesthesia record
[2023-08-25 08:11] LABS: Albumin, Blood 2.8 g/dL (3.4-5.0); Albumin/Globulin Ratio 0.7 (0.8-1.8); Bilirubin, Total 0.2 mg/dL (0.1-1.0); Calcium, Blood 8.5 mg/dL (8.5-10.1); Creatinine, Blood 0.4 mg/dL (0.40-1.00); Globulin, Blood 3.9 g/dL (2.2-4.0); Potassium, Blood 3.3 mmol/L (3.5-5.5); Total Protein, Blood 6.7 g/dL (6.4-8.2)
--- NOTE | 2023-08-25 14:23 | NUR ---
PHYSICIAN CONTACT CALLED DR PALACIO REGARDING CAREGIVER COMPLICATIONS AND HOLDING DISCHARGE. STATED DISHCARGE WILL BE HELD UNTIL CAREGIVERS ARE AVAILABLE, [facility] STATED THEY MAY HAVE STAFF SOON TOMORROW BUT POSSIBLY NOT UNTIL SUNDAY. WILL CONTIUE TO MONITOR
--- NOTE | 2023-08-25 17:28 | NUR ---
SHIFT SUMMARY PATIENT SET TO DISCHARGE THIS SHIFT, MINUS CAREGIVER SUPPORT, WILL CONTINUE TO WORK ON THIS ISSUE. MD MADE AWARE AND DELAYED DISCHARGE. NO C/O PAIN REQUIRING MEDICATION, ALLEVIATED WITH REPOSITIONING. WILL CONITNUE TO MONITOR
[2023-08-25 20:33] LABS: pH Blood Arterial 7.19 (7.35-7.45)
[2023-08-25 20:35] LABS: PCO2 Arterial > 105 mmHg (35-45); PO2 Arterial 74.7 mmHg (80-100)
--- NOTE | 2023-08-25 20:35 | NUR ---
PT SEMI RESPONSIVE. BP AND HR ELEVATED. SEE DOC FLOW SHEETS. SKIN PALE AND COL TO TOUCH. VERBAL ESPONSESLOW AND VERY SFT, WHEN RESPONDING. INCONT OF URINE. RT AT BEDSIDE. DRAWS BLOOD GAS: CO2>105, pH 7.19. CALL LIGHT IN REACH. CHANGED LINEN/INCONT CARE. CALL PLACED TO
--- NOTE | 2023-08-25 21:16 | NUR ---
NOTIFIED OF PT S/S. CAME TO FLOOR TO ASSSESS HER. ORDERS FOR O2/RT (SEE ORDERS) AND TO TRANSFER TO PCU FOR CLOSER CARE. RADIOLOGY HERE FOR CXR. REWEAVER RECEIVED ERPORT.
--- NOTE | 2023-08-25 21:41 | NUR ---
TRANSFER NOTE REPORT GIVEN TO JUNIOR NETWORK ADMINISTRATOR. PT TRANSFERRED TO PCU 01 WITH ALL BELONGINGS AND MEDS. PT TRANSFERRED WITH RT (RESP ISSUES) AND RN. ISOLATION PRECAUTIONS MAINTAINED
[2023-08-25 22:33] LABS: Base Excess Venous 12.6 mmol/L; Bicarbonate Venous 32.9 mmol/L (24.0-30.0); PCO2 Venous 87.5 mmHg (38-42); pH Blood Venous 7.26 (7.34-7.37)
--- NOTE | 2023-08-25 23:05 | NUR ---
ASSUMPTION OF CARE PT TRANSFERRED TO UNIT VIA HOSPITAL BED AT APPROX 2130. PT AOX3-4. RESPONSIVE TO VERBAL STIMULI. ABLE TO COMMUNICATE VIA ONE WORD MUMBLED STATEMENTS. DIFFICULTY FOLLOWING DIRECTIONS. VSS. BP ELEVATED UPON ARRIVAL, SBP NOW IN THE 140'S ONCE SETTLED. TELEMETRY SHOWING SINUS TACH 110'S. PT ON BIPAP, SATS >90%. TOLERATING WELL AT THIS TIME. REPEAT VBG OBTAINED, NOTIFIED OF RESULTS AT APPROX 1045. NO NEW ORDERS RCVD. PT BED BOUND AT BASELINE, PT UNABLE TO PARTICIPATE W/ REPOSITIONING AND REPORTS PAIN W/ PASSIVE EXTREMITY MOVEMENT. HEEL DROP NOTED. LIFT SHEET IN USE. INCONTINENT OF URINE, PUREWICK AND ATTENDS IN PLACE. PT CURRENTLY RESTING ON BIPAP. CALL LIGHT IN REACH.
[2023-08-26 03:06] VITALS: BP 125/49
[2023-08-26 04:19] LABS: BASOPHILS ABSOLUTE AUTO 0.03 K/mm3 (0.00-0.23); BASOPHILS PERCENT AUTO 0 % (0-2); EOSINOPHILS ABSOLUTE AUTO 0.05 K/mm3 (0.00-0.68); EOSINOPHILS PERCENT AUTO 1 % (0-6); Hematocrit 36.7 % (33.0-51.0); Hemoglobin 11.5 g/dL (11.5-16.0); IMMATURE GRAN ABSOLUTE AUTO 0.04 K/mm3 (0.00-0.10); IMMATURE GRAN PERCENT AUTO 0 % (0-1); LYMPHOCYTES ABSOLUTE AUTO 1.16 K/mm3 (0.84-5.20); LYMPHOCYTES PERCENT AUTO 12 % (21-46); MONOCYTES ABSOLUTE AUTO 0.93 K/mm3 (0.16-1.47); MONOCYTES PERCENT AUTO 10 % (4-13); Mean Corpuscular HGB Conc 31.3 g/dL (31.5-36.5); Mean Corpuscular Volume 96 fL (80-100); Mean Platelet Volume 9.3 fL (9.1-12.4); NEUTROPHILS ABSOLUTE AUTO 7.11 K/mm3 (1.96-9.15); NEUTROPHILS PERCENT AUTO 76 % (41-73); Platelet Count 263 K/mm3 (150-400); RDW Coefficient Variation 12.1 % (11.7-14.2); RDW Standard Deviation 42.2 fL (35.1-46.3); Red Blood Cell Count 3.83 M/mm3 (3.80-5.20); White Blood Cell Count 9.32 K/mm3 (4.00-11.30)
[2023-08-26 04:24] LABS: Albumin, Blood 2.6 g/dL (3.4-5.0); Anion Gap 6 mmol/L (6-16); Blood Urea Nitrogen 2 mg/dL (8-24); Bun/Creatinine Ratio 4.5 (12.0-20.0); CO2, Blood 36 mmol/L (21-32); Calcium, Blood 8.9 mg/dL (8.5-10.1); Chloride, Blood 98 mmol/L (98-108); Creatinine, Blood 0.45 mg/dL (0.40-1.00); Glomerular Filtration Rate 106 (60-); Glucose, Blood 79 mg/dL (70-99); Phosphorus, Blood 1.8 mg/dL (2.5-4.9); Potassium, Blood 4.1 mmol/L (3.5-5.5); Sodium, Blood 140 mmol/L (136-145)
--- NOTE | 2023-08-26 05:06 | NUR ---
SHIFT SUMMARY NO ACUTE CHANGES SINCE ASSUMPTION OF CARE. PT REMAINS AOX3-4. MENTATION SEEMS TO BE IMPROVING W/ INTERMITTENT EPISODES OF INCREASED CONFUSION. ABLE TO REORIENT EASILY. PT ABLE TO COMMUNICATE NEEDS PRN, SPOKEN STATEMENTS MUCH CLEARER THAN ASSUMPTION OF CARE. INCREASED ABILITY TO FOLLOW DIRECTIONS. BP STABLE. TELEMETRY CONTINUING TO SHOW SINUS TACH. PT REMAINS ON BIPAP THROUGHOUT SHIFT, SATS >90%. TENDS TO FIDGET W/ MASK, REQUIRING FREQUENT REPOSITIONING AND EDUCATION. ATTENDS AND PUREWICK IN PLACE. VOIDING. SMALL SMEAR BM THIS SHIFT. REGULAR REPOSITIONING IN PLACE, REQUIRING LIFT ASSIST PRN. CALL LIGHT IN REACH. WILL REPORT TO ONCOMING RN.
[2023-08-26 07:48] VITALS: BP 129/49
[2023-08-26 09:17] LABS: Base Excess Venous 7.9 mmol/L; Bicarbonate Venous 31.1 mmol/L (24.0-30.0); PCO2 Venous 40.4 mmHg (38-42)
[2023-08-26 11:53] VITALS: BP 107/68
--- NOTE | 2023-08-26 12:42 | NUR ---
I CALLED DR. PRAVEENA RAYMUNDO ABOUT NEURO CHANGES DR. PALACIO IS GOING TO BE MAKING CHANGES TO THE PT'S EMAR DUE TO MENTATION CHANGES. HE IS GOING TO MAKE HER KAMILLADON IM STARTING TONIGHT AND D/C MANY MENTAION SEDATING OR ALTERING MEDICATIONS. HE SAID HE WOULD RATHER HAVE THE PT UNDER SEDATED THEN OVER SEDATED AT THIS TIME. HE WANTS US TO WATCH THE PT'S AIRWAY AND ENSURE THAT THEIR ARE NO FACIAL DROOPS OR ONE SIDED WEAKNESS. NEURO WILL BE RECHECKED.
[2023-08-26 15:07] VITALS: BP 122/63
--- NOTE | 2023-08-26 15:27 | NUR ---
SHIFT SUMMARY PT HAS HAD SOME NEURO CHANGES TODAY. SEE NUERO REASSESSMENTS FOR DETAILS. PT IS CURRENTLY WAKING UP TO SOUND AND IS A&0X2-3. SHE IS A Q2 TURN/BRIEF CHECK DUE TO INCONT. SHE HAS BEEN ON THE AVAP MOST OF THE DAY. THE PT STRUGGLES WITH NECK AND BACK PAIN SO SHE CAN NOT BE SAT UP IN A HIGH FOWLERS POSITION. I HAVE BEEN HAVING TO PUT HER IN A REVERSE TRENDELENBURG WITH A 15-20 DEGREE ELEVATED HOB FOR ANY INTAKE. THIS AM THE PT WAS ABLE TO TAKE PILLS WHOLE AND DRINK WITH VERBAL CUES. SHE WAS TOO DROWSY AT LUNCH FOR ANY INTAKE. SEE PREVIOUSE NOTE FOR MORE INFORMATION. THE PT IS ON TELE WITH HR ST 100-110'S, SP02 >90% ON THE AVAP OR 3L NC. A NICOTINE PATCH IS IN PLACE DUE TO HOME USE OF VAPES. FIRE IGNITION RISK HAS BEEN ASSESSED.
--- NOTE | 2023-08-26 17:11 | NUR ---
ASSUMED CARE OF PT: RECEIVED REPORT FROM MARIA D STEVENSON. PT RESTING QUIETLY IN ROOM AT THIS TIME, AVAP IN PLACE, NO ACUTE DISTRESS NOTED. WILL CONTINUE TO MONITOR AND TREAT ACCORDINGLY UNTIL CHANGE OF SHIFT.
[2023-08-26 19:35] VITALS: BP 103/52
[2023-08-27 00:19] VITALS: BP 131/78
--- NOTE | 2023-08-27 01:49 | NUR ---
THIS RN NOTIFIED THAT PT SATS IN THE 80'S. PT CPAP IN PLACE WITH 3L BLEED IN. O2 INCREASED TO 10L BLEED IN, SATS INCREASED TO MID 80'S. RT NOTIFIED.
[2023-08-27 03:34] LABS: BASOPHILS ABSOLUTE AUTO 0.02 K/mm3 (0.00-0.23); BASOPHILS PERCENT AUTO 0 % (0-2); EOSINOPHILS ABSOLUTE AUTO 0.39 K/mm3 (0.00-0.68); EOSINOPHILS PERCENT AUTO 6 % (0-6); Hematocrit 34.6 % (33.0-51.0); Hemoglobin 11.5 g/dL (11.5-16.0); IMMATURE GRAN ABSOLUTE AUTO 0.01 K/mm3 (0.00-0.10); IMMATURE GRAN PERCENT AUTO 0 % (0-1); LYMPHOCYTES ABSOLUTE AUTO 2.12 K/mm3 (0.84-5.20); LYMPHOCYTES PERCENT AUTO 32 % (21-46); MONOCYTES ABSOLUTE AUTO 0.66 K/mm3 (0.16-1.47); MONOCYTES PERCENT AUTO 10 % (4-13); Mean Corpuscular HGB 30.7 pg (26.0-34.0); Mean Corpuscular HGB Conc 33.2 g/dL (31.5-36.5); Mean Corpuscular Volume 93 fL (80-100); Mean Platelet Volume 9.1 fL (9.1-12.4); NEUTROPHILS ABSOLUTE AUTO 3.52 K/mm3 (1.96-9.15); NEUTROPHILS PERCENT AUTO 53 % (41-73); Platelet Count 236 K/mm3 (150-400); RDW Standard Deviation 40.8 fL (35.1-46.3); Red Blood Cell Count 3.74 M/mm3 (3.80-5.20); White Blood Cell Count 6.72 K/mm3 (4.00-11.30)
[2023-08-27 04:10] LABS: Albumin, Blood 2.7 g/dL (3.4-5.0); Anion Gap 4 mmol/L (6-16); Blood Urea Nitrogen 4 mg/dL (8-24); Bun/Creatinine Ratio 9.8 (12.0-20.0); CO2, Blood 34 mmol/L (21-32); Calcium, Blood 9.2 mg/dL (8.5-10.1); Chloride, Blood 100 mmol/L (98-108); Creatinine, Blood 0.41 mg/dL (0.40-1.00); Glomerular Filtration Rate 108 (60-); Glucose, Blood 88 mg/dL (70-99); Phosphorus, Blood 1.4 mg/dL (2.5-4.9); Potassium, Blood 4.1 mmol/L (3.5-5.5); Sodium, Blood 138 mmol/L (136-145)
[2023-08-27 05:04] VITALS: BP 123/55
--- NOTE | 2023-08-27 05:53 | NUR ---
SHIFT SUMMARY PT A/OX 3-4. PT USING CALL LIGHT TO EXPRESS NEEDS. PT EASILY AGITATED AT TIMES. VSS THORUGHOUT SHIFT WITH 02 SATS IN THE 90'S ON 3L NC AND CPAP. PT HAD PERIOD OF DESATTING TO 80'S WHILE SLEEPING DUE TO AIR LEAK, SATS RETURNED TO 90'S AFTER LEAK WAS STOPPED. NO REPORT OF CHEST PAIN/PRESSURE THROUGHOUT SHIFT. NO REPORT OF SOB/DYSPNEA THROUGHOUT SHIFT. PT TURNED FREQUENTLY DURING SHIFT, PT REPORTS PAIN DURING EACH TURN, TREATED PER EMAR AND REST. PUREWICK IN PLACE.
[2023-08-27 07:53] VITALS: BP 148/53
[2023-08-27 11:20] VITALS: BP 142/58
--- NOTE | 2023-08-27 15:10 | NUR ---
DISCHARGE: PT HAS BEEN A&Ox4 T/OUT THIS SHIFT, ANSWERING QUESTIONS APPROPRIATELY AND ABLE TO MAKE NEEDS KNOWN. PT HAS BEEN CLEARED FOR DISCHARGE HOME, CAREGIVER TRACY HAS BEEN UPDATED VIA TELEPHONE T/OUT THE DAY. ALL IV ACCESS HAS BEEN DC'd WNL. DISCHARGE PAPERWORK, MEDICATION CHANGES AND INSTRUCTIONS REVIEWED W/PT, PT V/U AND ALL QUESTIONS HAVE BEEN ANSWERED. PT PENDING DISCHARGE ONCE TRANSPORT ARRIVES.
== END 2023-08-27 15:32 | disposition home or self-care (01) | DRG 189 ==
LOC: ORSCMMR 12:04 → SURS 12:05 → ORSCMMR 12:05 → SURS 12:05 → MEDS 12:06 → SURS 12:07 → MEDS 17:35 → ORSCMMR 08-24 08:15 → ENPENDDIS 08-25 10:29 → PCU 08-25 21:29
PROVIDERS: Internal Medicine; Internal Medicine Gastroenterology; Student in an Organized Health Care Education/Training Program; ADMIT Family Medicine
PROC: 0DJD8ZZ Inspection of Lower Intestinal Tract, Via Natural or Artificial Opening Endoscopic (ICD-10-PCS; 2023-08-24)
PROC: 0DJD8ZZ Inspection of Lower Intestinal Tract, Via Natural or Artificial Opening Endoscopic (ICD-10-PCS; 2023-08-25)
PROC: 5A09357 Assistance with Respiratory Ventilation, Less than 24 Consecutive Hours, Continuous Positive Airway Pressure (ICD-10-PCS; principal; 2023-08-25 07:30)
DX: J96.22 Acute and chronic respiratory failure with hypercapnia (principal); G92.8 Other toxic encephalopathy; I69.354 Hemiplegia and hemiparesis following cerebral infarction affecting left non-dominant side; E66.2 Morbid (severe) obesity with alveolar hypoventilation; Z68.41 Body mass index [BMI] 40.0-44.9, adult; K59.09 Other constipation; T50.915A Adverse effect of multiple unspecified drugs, medicaments and biological substances, initial encounter; K21.9 Gastro-esophageal reflux disease without esophagitis; K76.0 Fatty (change of) liver, not elsewhere classified; I10 Essential (primary) hypertension; E78.5 Hyperlipidemia, unspecified; I73.9 Peripheral vascular disease, unspecified; J44.9 Chronic obstructive pulmonary disease, unspecified; R91.1 Solitary pulmonary nodule; M79.7 Fibromyalgia; M10.9 Gout, unspecified; E03.9 Hypothyroidism, unspecified; E87.6 Hypokalemia; M19.90 Unspecified osteoarthritis, unspecified site; K62.89 Other specified diseases of anus and rectum; G89.29 Other chronic pain; M54.50 Low back pain, unspecified; F41.9 Anxiety disorder, unspecified; K25.9 Gastric ulcer, unspecified as acute or chronic, without hemorrhage or perforation; F31.9 Bipolar disorder, unspecified; F17.290 Nicotine dependence, other tobacco product, uncomplicated; G62.9 Polyneuropathy, unspecified; Z53.29 Procedure and treatment not carried out because of patient's decision for other reasons; Z86.19 Personal history of other infectious and parasitic diseases; Z86.010 Personal history of colon polyps; Z99.81 Dependence on supplemental oxygen; Z85.41 Personal history of malignant neoplasm of cervix uteri; Z90.49 Acquired absence of other specified parts of digestive tract; Z88.8 Allergy status to other drugs, medicaments and biological substances; Z91.018 Allergy to other foods; Z91.012 Allergy to eggs; Z91.048 Other nonmedicinal substance allergy status; Z88.1 Allergy status to other antibiotic agents; Z88.0 Allergy status to penicillin; Z91.040 Latex allergy status; Z91.199 Patient's noncompliance with other medical treatment and regimen due to unspecified reason; Z71.6 Tobacco abuse counseling; Z74.01 Bed confinement status
CPT/HCPCS: 36415; 36600; 71045; 80048; 80053; 80069; 82803; 82947; 85025; 94640; 94660; 94664; 94760; 94762; 96374; 97112; 97161; A9270; G0378; J2405; J2704; J7050; J7060; J7120; Q0175

== ENCOUNTER 2023-09-22 12:00 | Emergency (ER) | payer OTHER ==
[~2023-09-22] VITALS: Ht 165.1 cm; Wt 181.4 kg
[~2023-09-22 12:00] MED LIST changes: +BUSPIRONE HCL5 M6 PO; +Calcium Carbon500 MG PO; +FERROUS SULFAT325 M3 PO; +MIRALAX11914 PO; +Ventolin5 MG/1 ML INH; +[UNRECOGNIZED DRUG - OTHER] PO
[2023-09-22 13:15] VITALS: BP 183/98
== END 2023-09-22 13:52 | disposition home or self-care (01) ==
LOC: ER 12:00
DX: R41.0 Disorientation, unspecified (principal); Z51.5 Encounter for palliative care; I10 Essential (primary) hypertension; M19.90 Unspecified osteoarthritis, unspecified site; J43.9 Emphysema, unspecified; Z88.0 Allergy status to penicillin; Z91.018 Allergy to other foods; Z91.048 Other nonmedicinal substance allergy status; Z88.1 Allergy status to other antibiotic agents; Z91.012 Allergy to eggs; Z91.040 Latex allergy status; Z79.899 Other long term (current) drug therapy; Z87.891 Personal history of nicotine dependence
CPT/HCPCS: 99285-25; A9270

== ENCOUNTER 2023-09-24 07:49 | Emergency (ER) | payer OTHER ==
[~2023-09-24] VITALS: Ht 167.6 cm; Wt 90.7 kg
[2023-09-24 07:56] VITALS: BP 192/100
[2023-09-24 08:46] LABS: Source, Urine Foley catheter
[2023-09-24 08:49] LABS: Appearance, Urine Clear (Clear); Bilirubin, Urine Neg (Neg); Blood, Urine 4+ (Neg); Color, Urine Yellow (P-Yellow); Glucose Qualitative, Urine Neg (Neg); Ketones, Urine 4+ (Neg); Leukocyte Esterase, Urine Neg (Neg); Nitrite, Urine Neg (Neg); Protein, Urine 2+ (Neg); Urobilinogen, Urine NORM (Normal)
[2023-09-24 08:59] LABS: Bacteria Not Seen /hpf; Squamous Epithelial Cells Rare /hpf (Few); White Blood Cells, Urine Not Seen /hpf (0-5)
== END 2023-09-24 22:30 | disposition home or self-care (01) ==
LOC: ER 07:49
PROVIDERS: Physician Assistant
DX: R41.0 Disorientation, unspecified (principal); Z88.0 Allergy status to penicillin; Z91.018 Allergy to other foods; Z91.048 Other nonmedicinal substance allergy status; Z91.012 Allergy to eggs; Z88.1 Allergy status to other antibiotic agents; Z91.040 Latex allergy status; Z88.5 Allergy status to narcotic agent; Z79.899 Other long term (current) drug therapy; I10 Essential (primary) hypertension; M19.90 Unspecified osteoarthritis, unspecified site; J43.9 Emphysema, unspecified; F17.290 Nicotine dependence, other tobacco product, uncomplicated
CPT/HCPCS: 51702; 81001; 99285-25

== ENCOUNTER 2023-09-29 10:05 | Emergency (ER) | payer OTHER ==
[~2023-09-29] VITALS: Ht 167.6 cm; Wt 90.7 kg
[2023-09-29] MEDS ORDERED: RAMI5 PO (18:00)
[2023-09-29] MEDS ORDERED: ONELAX10 MG PR (18:02)
[2023-09-29] MEDS ORDERED: BUTALB-ACETAMI1 EAC5 PO (18:03)
[2023-09-29] MEDS ORDERED: CATAPRES0.1 MG PO (18:05)
[2023-09-29] MEDS ORDERED: COMBIVENT RESPIM4 G1 INH (18:08)
[2023-09-29] MEDS ORDERED: FENTANYL1 EAC3 TOP (18:10)
[2023-09-29] MEDS ORDERED: GUAI200 PO (18:11)
[2023-09-29] MEDS ORDERED: DOCUZEN 8.6-501 EACH PO (18:12)
[2023-09-29] MEDS ORDERED: HYOSCYAMINE0.125 MG MM (18:14)
[2023-09-29] MEDS ORDERED: Ativan1 MG PO (18:16)
[2023-09-29] MEDS ORDERED: Methocarbamol750 MG PO (18:18)
[2023-09-29] MEDS ORDERED: DULCOLAX400 MG/5 M PO (18:20)
[2023-09-29] MEDS ORDERED: CENTRUM SILVER1 EAC2 PO (18:25)
[2023-09-29] MEDS ORDERED: MORP30 (18:25)
[2023-09-29] MEDS ORDERED: NAPR500 PO (18:28)
[2023-09-29] MEDS ORDERED: OXYC5 PO (18:35)
[2023-09-29] MEDS ORDERED: QVAR REDIHALE10.6 G3 (18:37)
[2023-09-29] MEDS ORDERED: STIOLTO RESPIMAT4 G1 (18:40)
== END 2023-09-29 12:46 | disposition home or self-care (01) ==
LOC: ER 10:05
DX: T83.021A Displacement of indwelling urethral catheter, initial encounter (principal); Y84.6 Urinary catheterization as the cause of abnormal reaction of the patient, or of later complication, without mention of misadventure at the time of the procedure; I10 Essential (primary) hypertension; F31.9 Bipolar disorder, unspecified; J43.9 Emphysema, unspecified; F17.290 Nicotine dependence, other tobacco product, uncomplicated; Z88.0 Allergy status to penicillin; Z88.1 Allergy status to other antibiotic agents; Z91.030 Bee allergy status; Z91.012 Allergy to eggs; Z91.040 Latex allergy status; Z88.8 Allergy status to other drugs, medicaments and biological substances; Z91.018 Allergy to other foods; Z91.048 Other nonmedicinal substance allergy status; Z79.899 Other long term (current) drug therapy
CPT/HCPCS: 51702; 99283

== ENCOUNTER 2023-09-29 13:51 | Inpatient (IN) | payer OTHER ==
[~2023-09-29] VITALS: Ht 167.6 cm; Wt 105.9 kg
[2023-09-29 15:38] LABS: Source, Urine Foley catheter
[2023-09-29 15:42] LABS: Appearance, Urine Hazy (Clear); Bilirubin, Urine Neg (Neg); Blood, Urine 5+ (Neg); Color, Urine Yellow (P-Yellow); Glucose Qualitative, Urine Neg (Neg); Ketones, Urine 4+ (Neg); Leukocyte Esterase, Urine 1+ (Neg); Nitrite, Urine Neg (Neg); Protein, Urine 3+ (Neg); Specific Gravity, Urine 1.015 (1.003-1.022); Urobilinogen, Urine NORM (Normal)
[2023-09-29 15:51] LABS: BASOPHILS ABSOLUTE AUTO 0.06 K/mm3 (0.00-0.23); BASOPHILS PERCENT AUTO 0 % (0-2); EOSINOPHILS ABSOLUTE AUTO 0.05 K/mm3 (0.00-0.68); EOSINOPHILS PERCENT AUTO 0 % (0-6); Hematocrit 40.5 % (33.0-51.0); Hemoglobin 13.1 g/dL (11.5-16.0); IMMATURE GRAN PERCENT AUTO 1 % (0-1); LYMPHOCYTES ABSOLUTE AUTO 1.16 K/mm3 (0.84-5.20); LYMPHOCYTES PERCENT AUTO 8 % (21-46); MONOCYTES ABSOLUTE AUTO 0.91 K/mm3 (0.16-1.47); MONOCYTES PERCENT AUTO 7 % (4-13); Mean Corpuscular HGB 29.2 pg (26.0-34.0); Mean Corpuscular HGB Conc 32.3 g/dL (31.5-36.5); Mean Corpuscular Volume 90 fL (80-100); NEUTROPHILS ABSOLUTE AUTO 11.79 K/mm3 (1.96-9.15); NEUTROPHILS PERCENT AUTO 84 % (41-73); Platelet Count 302 K/mm3 (150-400); RDW Coefficient Variation 12.8 % (11.7-14.2); RDW Standard Deviation 41.1 fL (35.1-46.3); Red Blood Cell Count 4.48 M/mm3 (3.80-5.20); White Blood Cell Count 14.07 K/mm3 (4.00-11.30)
[2023-09-29 16:03] LABS: Albumin, Blood 3.2 g/dL (3.4-5.0); Albumin/Globulin Ratio 0.7 (0.8-1.8); Bilirubin, Total 0.8 mg/dL (0.1-1.0); Bun/Creatinine Ratio 19.8 (12.0-20.0); Calcium, Blood 9.7 mg/dL (8.5-10.1); Creatinine, Blood 0.45 mg/dL (0.40-1.00); Globulin, Blood 4.7 g/dL (2.2-4.0); Potassium, Blood 3.2 mmol/L (3.5-5.5); Total Protein, Blood 7.9 g/dL (6.4-8.2)
[2023-09-29 16:11] LABS: Mucus Light (0-Heavy); Red Blood Cells, Urine TNTC /hpf (0-2); Renal Epithelial Rare /hpf (0-Rare); Squamous Epithelial Cells Rare /hpf (Few); Transitional Epithelial Cells Few /hpf (0-Rare)
[2023-09-29 16:12] LABS: Amorphous Light (0-Heavy); Bacteria Mod /hpf; Hyaline Casts 0-2 /lpf (0-2)
[2023-09-29] MEDS ORDERED: RAMI5 PO (18:00)
[2023-09-29] MEDS ORDERED: ONELAX10 MG PR (18:02)
[2023-09-29] MEDS ORDERED: BUTALB-ACETAMI1 EAC5 PO (18:03)
[2023-09-29] MEDS ORDERED: CATAPRES0.1 MG PO (18:05)
[2023-09-29] MEDS ORDERED: COMBIVENT RESPIM4 G1 INH (18:08)
[2023-09-29] MEDS ORDERED: FENTANYL1 EAC3 TOP (18:10)
[2023-09-29] MEDS ORDERED: GUAI200 PO (18:11)
[2023-09-29] MEDS ORDERED: DOCUZEN 8.6-501 EACH PO (18:12)
[2023-09-29] MEDS ORDERED: HYOSCYAMINE0.125 MG MM (18:14)
[2023-09-29] MEDS ORDERED: Ativan1 MG PO (18:16)
[2023-09-29] MEDS ORDERED: Methocarbamol750 MG PO (18:18)
[2023-09-29] MEDS ORDERED: DULCOLAX400 MG/5 M PO (18:20)
[2023-09-29] MEDS ORDERED: CENTRUM SILVER1 EAC2 PO (18:25)
[2023-09-29] MEDS ORDERED: MORP30 (18:25)
[2023-09-29] MEDS ORDERED: NAPR500 PO (18:28)
[2023-09-29] MEDS ORDERED: OXYC5 PO (18:35)
[2023-09-29] MEDS ORDERED: QVAR REDIHALE10.6 G3 (18:37)
[2023-09-29] MEDS ORDERED: STIOLTO RESPIMAT4 G1 (18:40)
--- NOTE | 2023-09-29 19:00 | NUR ---
ADMIT NOTE PT ARRIVED TO ROOM 356 AT 1856 FROM ER. PT ARRIVED VIA GURNEY. TRANSFERED PT TO HOSPITAL BED WITH X4 ASSIST. PT ARRIVES IN SIGNIFICANT PAIN. CISNEROS CATHETER IN PLACE. 2L NC ON. PATIENT IS COMFORT CARE STATUS. CONTACT PRECAUTIONS IN PLACE FOR HISTORY OF [facility] 06/2023. LEFT BED IN LOWEST POSITION, BED ALARM SET. PT ARRIVES WITH NO PERSONAL BELONGINGS. NO EVIDENCE OF IGNITION SOURCE PRESENT.
[2023-09-29 23:51] VITALS: BP 173/68
--- NOTE | 2023-09-30 05:08 | NUR ---
SHIFT SUMMARY PT IS ALERT, ORIENTED TO HERSELF. PT IS COMFORT CARE STATUS. STATES SHE IS IN PAIN, AND MOANS CONTINUALLY. PAIN MEDICATION GIVEN PER EMAR. REPOSITIONED TOLERATED. CISNEROS CATHETER DRAINING DARK YELLOW URINE. NO BM THIS SHIFT. TOLERATING THIN LIQUIDS W/O CHOKING, OR COUGHING. BED IN LOWEST POSITION. CALL LIGHT WITHIN REACH. BED ALARM SET FOR PT'S SAFETY. FIRE SAFETY CHECKS COMPLETED
--- NOTE | 2023-09-30 14:18 | NUR ---
NOTE: PATIENT'S PHONE WAS RINGING IN HER ROOM. I ANSWERED THE PHONE DUE TO THE PATIENT'S INABLILITY TO ANSWER/RESPOND. IT WAS THE PATIENT'S BROTHER LEIA. I DID LET HIM KNOW THAT HIS SISTER IS IN THE HOSPITAL AND THAT WE ARE CONTINUING CARE ON HOSPICE SINCE HE WAS AWARE SHE WAS ON HOSPICE FOR COMFORT CARE. I DID LET HIM KNOW THAT SHE IS HERE DUE TO HER NOT GETTING THE FULL AMOUNT OF CARE SHE NEEDED AT HOME. HE SAID THAT HE DID NOT LIVE AND TOWN. HE TOLD ME THAT IF THAT SHE ENDED UP IN A FACIILTY HE WOULD CHARGE ME OF KIDNAPPING AND THAT THE PATIENT'S WISHES WERE TO AT HOME. THE PHONE CALL WAS DISCONNECTED.
--- NOTE | 2023-09-30 16:50 | NUR ---
SHIFT SUMMARY: PT IS A 67 YEAR OLD FEMALE HERE ON HOSPICE AND COMFORT CARE. SHE WAS PREVIOUS ALREADY ON HOSPICE CARE, BUT WASN'T ABLE TO GET THE AMOUNT OF CARE THAT SHE WAS NEEDING AT HOME ALONE AND WITH THE AID OF HOME HEALTH. SHE RESPONSES TO PAIN AND HAS MINIMAL VERBAL COMMUNICATION. SHE MOANS AND TONTO APACHE OUT IN PAIN AND SAYS RAMANA OBRIEN, AND HAD MADE SMALL STATES TODAY SUCH " CAN I HAVE WATER" AND " I HAVE TOO MANY BLANETS" HASN'T USED CALL LIGHT. SHE HAS BEEN RECEIVING COMFORT CARE MEDS NEEDED AND GETTING REPOSITIONED EVERY 2 HOURS. SHE HAS A CHRONIC CISNEROS CATHETER, BUT STILL MANAGES TO LEAK SMALL AMOUNTS OF URINE. DR. CASTANON NOTIFIED. NO CHANGES OR ORDERS. NOT SURE WHAT THE PLAN IS AT THIS TIME DUE TO NO NURSE GAS OPERATOR APPOINTED TODAY, BUT PLAN OF CARE ONGOING FOR KEEPING PATIENT COMFORTABLE.
--- NOTE | 2023-10-01 04:33 | NUR ---
SHIFT SUMMARY; COMFORT CARE PT. THE PT IS MORE ALERT TODAY AXO X1-2 AND BEDREST. THE PT IS STILL MOANING OFF AND ON IN PAIN, MEDICATED PER EMAR WITH MILD RELIEF. THE PT CAN NOT TOLERATE EVEN THE SHEET OVER THE TOP OF HER FEET. THE PT HAS A CISNEROS CATHETER IN PLACE, IT IS PATENT AND DRAINING DARK URINE. THE PT IS ABLE TO ASK FOR WATER TDDAY, WELL TO BE REPOSITIONED. THE PT DOES NOT USE HER CALL LIGHT, SHE JUST YELLS OUT. THE PT HAS NOT HAD ANY N/V THIS SHIFT. THE PT HAS 2L NC IN PLACE FOR COMFORT. CURRENTLY THE PT IS SLEEPING IN BED WITH THE BED IN THE LOWEST POSITION AND THE CALL LIGHT AT BEDSIDE. FIRE SAFETY ROUNDS COMPLETED.
--- NOTE | 2023-10-01 10:47 | NUR ---
BROTHER JENNIFER OF THIS PATIENT ASKED FOR THIS RN TO CALL HIM BACK. THIS RN CALLS TO SPEAK WITH HIM AND HE STARTS THE CONVERSATION WITH "YOU ARE KIDNAPPING HER AND I WANT HER SENT HOME TODAY" tRYING TO EXPLAIN TO HIM THAT I WAS NOT PLANNING HER DISCHARGE THAT I COULD FORWARD TO SEMI TRUCK DRIVER THIS RN MET WITH MUCH RESISTANCE. HE THREATENS TO "COME TAKE CARE OF ME" SECURITY IS NOTIFIED AND JULES RN COORDINATOR NOTIFIED. [facility] GAMBRELER HELPER COMES TO ROOM A FEW MINUTES LATER. PATIENT HAS CARE GIVERS 7 DAYS PER WEEK FOR 5 HOURS PER DAY. NO ONE AT NIGHT. SHE SAYS THAT [facility] HAS FREQUENT EPISODES OF INABILITY TO TAKE HER MEDICATIONS ON HER OWN AND IS BECOMING INCREASINGLY CONFUSED. SHE HAS A STATE SEMI TRUCK DRIVER NAMED NAT COATES. EVELINE SEMI TRUCK DRIVER RN IS NOTIFIED AND SHE WILL COMMUNICATE WITH BOTH AGENCIES TO FIND A SAFE DISCHARGE PLAN.
--- NOTE | 2023-10-01 16:52 | NUR ---
SHIFT SUMMARY; PATIENT REMAINS VERY SEDATE THROUGHOUT SHIFT. ONLY WAKING X 2 FOR PAIN MEDICATION. PATIENT DOES NOT MAKE EYE CONTACT. SHE MOANS AND GRIMACES WHEN TURNED BY DARYN PEDRO. STATE TIRE REGROOVING MACHINE OPERATOR COMES TO ROOM TO MEET WITH CAREGIVER TRACY TIRE REGROOVING MACHINE OPERATOR MADDY AND PATIENT. THEY WILL COME UP WITH A DC PLAN.
--- NOTE | 2023-10-01 17:40 | NUR ---
Spoke to pt's brother Victor Manuel this afternoon, he admitted he had acted out of frustration earlier today when speaking to the pt's bedside RN today. He stated the patient "just wants to at home", and showed no interest in discussing pt's current altered mental status. He acknowledged he didn't think she would be safe alone at home, but also stated, "What do you care since it's what she wants?" I gently reminded him we are unable to send people into unsafe environments if they are unable to make their needs and wants known. I stated she was able to make that choice in the past, but not any longer. The brother stated we would have to agree to disagree on this. Plan to continue therapeutic visits with pt.
--- NOTE | 2023-10-02 04:36 | NUR ---
SHIFT SUMMARY; NO ACUTE CHANGES OVERNIGHT. COMFORT CARE PT. THE PT HAS BEEN ASLEEP MOST OF THE NIGHT. THE PT DOES AWAKEN W/ REPOSITIONING. THE PT HAS BEEN MEDICATED ONCE W/ ROXANOL FOR PAIN. THE PT IS AXO X2 AND IS ABLE TO SAY SOME WORDS LIKE OW, PAIN, ICE WATER AND NO, OTHERWISE THE PT DOES NOT TALK. THE PT IS BEDREST. THE PT HAS A CISNEROS, IT IS PATENT AND DRAINING TO GRAVITY. CURRENTLY THE PT IS LAYING IN BED COMFORTABLY, THE BED IS IN THE LOWEST POSITION AND THE CALL LIGHT IS AT BEDSIDE. FIRE SAFETY ROUNDS COMPLETED.
--- NOTE | 2023-10-02 17:25 | NUR ---
SHIFT SUMMARY; LIBERTAD IS UCH MORE AWAKE TODAY. SHE IS NOTED TO HALLUCINATE AT TIMES SEEING PEOPLE IN ROOM WHO ARE NOT THERE. SPEAKS WITH ALEXA FROM [employer] ON THE PHONE. PATIENT EATS ICE CHIPS AND SMALL PEPSI. SHE IS REQUESTING DINNER AND WILL FEED HER WHEN MEAL TRAY ARRIVES. PATIENT REFUSES TO BE SAT UP OVER 30 DEGREES. EXPRESSING PAIN IN HER LOW BACK. SHE WATCHES TV MOST OF DAY. MEDICATED X 1 FOR PAIN. WILL REMAIN AVAILABLE FOR THIS PATIENT FOR ANYU WANTS OR NEEDS THAT COME UP UNTIL SHIFT CHANGE WITH NOC SHIFT RN.
--- NOTE | 2023-10-03 06:28 | NUR ---
SHIFT SUMMARY PATIENT A/Ox2, PLEASANTLY CONFUSED. APPEARS IN NO ACUTE DISTRESS AT TIME OF ASSESSMENT. STATES, "PLEASE DON'T LET THE CAT OUT." PAIN MANAGED PER JAN. CONTINUES ON COMFORT CARE. NOTIFIED ONCALL PROVIDER OF PATIENT'S COMFORT CARE STATUS AND THAT PATIENT HAD REMOVED IV EARLIER ON DAY SHIFT, ORDER RECEIVED, OK TO LEAVE OUT IV AND D/C IV RXS. APPEARS TO BE ASLEEP, RESTING COMFORTABLY IN BED AT THIS TIME. NO ACUTE CHANGES NOTED OVERNIGHT. BED LOCKED, CALL LIGHT WITHIN REACH.
--- NOTE | 2023-10-03 11:30 | NUR ---
RN NOTE MS TORRES IS CONFUSED, ORIENTATED TO HERSELF. ABLE TO FOLLOW INSTRUCTIONS. SHE DOES NOT HAVE PIV ACCESS IN PLACE - DISCUSSED WITH DR CACERES WHETHER NEW PIV IS NEEDED FOR IV MEDICATIONS OR LEAVE IT OUT. UNLESS SOMETHING CHANGES, AT THIS TIME DR CACERES SAID TO LEAVE PIV OUT. PT C/O SOME CENTRAL CHEST PAIN ON RESPIRATION, HELPED WITH ROXINOL. ON OXYGEN 2.5L NC. TURNED AND REPOSITIONED IN BED, SOB ON MINIMAL EXERTION. CISNEROS CATHETER DRAINING DARK YELLOW/LANDON URINE. BED LOW, CALL LIGHT IN REACH. BED ALARM ON.
--- NOTE | 2023-10-03 16:10 | NUR ---
SHIFT SUMMARY MS TORRES HAS BEEN CONFUSED TODAY, SOME NON-SENSICAL CONVERSATION, SOME APPARANT DIFFICULTY FINDING APPROPRIATE WORDS. ORIENTATED TO SELF. SHE MOANS AND C/O PAIN AND HAS SOB ON MINIMAL EXERTION. SHE HAS SETTLED AFTER EACH ROXINOL 20MG DOSE BUT HAS NEEDED IT AROUND EVERY 2.5HRS THIS SHIFT. POOR PO INTAKE THOUGH ENCOURAGED WITH MEALS AND FLUIDS. CISNEROS CATHETER IN PLACE DRAINING DARK YELLOW/LANDON COLORED URINE. ON OXTGEN 2.5L NC. HER BROTHER LEIA CALLED TO RN ENQUIRING AFTER HIS SISTER. HE STATED HE WOULD NOT BE VISITING D/T HIS DISABILITY. BED LOW, CALL LIGHT IN REACH, BED ALARM ON.
--- NOTE | 2023-10-04 04:38 | NUR ---
SHIFT SUMMARY PATIENT A/Ox2, PLEASANTLY CONFUSED. PAIN MANAGED PER MAR. CONTINUES ON COMFORT CARE. ASLEEP THROUGHOUT MOST OF SHIFT. WOKE UP AT ABOUT 03:15, REQUESTING PAIN MEDICATION, TOLERATED WELL, WENT BACK TO SLEEPING. NO ACUTE CHANGES NOTED OVERNIGHT. BED LOCKED, CALL LIGHT WITHIN REACH.
--- NOTE | 2023-10-04 14:07 | NUR ---
BROTHER VELMA CALLED VELMA BACK PHONE NUMBER [phone]. NO ACTUAL QUESTIONS JUST EMPTY AIR. THEN HE HUNG UP. CONTINUE POC.
[2023-10-04 19:56] VITALS: BP 146/57
--- NOTE | 2023-10-05 04:12 | NUR ---
SHIFT SUMMARY NO ACUTE CHANGES THIS SHIFT. ON COMFORT CARE. GENERALLY MAKES NONSENSICL CONVERSATION BUT THEN OTHER TIMES MAKES SOME NEEDS KNOWN. ON 2.5LNC. HAS BEEN INCONTINENT OF STOOL MULTIPLE TIMES THIS SHIFT, STAFF ASSISTING IN REPOSITIONING AND CLEANING. COVID SWAB COMPLETED FOR DISCHARGE DISPOSITION, AWAITING RESULTS. ROXANOL USED ONCE THIS SHIFT FOR PAIN, MENTATION REMAINED THE SAME WITH SOME INTENDED EFFECT FOR PAIN RESULTS, PT RESTED AFTERWARDS. OTHERWISE, PT HAS EATEN A FEW SNACKS THIS SHIFT AND TOLERATED PO WATER INTAKE. BED ALARM REMAINS ON. BED IN LOW POSITION.
[2023-10-05 06:44] LABS: Influenza A, PCR Negative (NEGATIVE); Influenza B, PCR Negative (NEGATIVE); Resp Syncytial Virus, PCR Negative (NEGATIVE); SARS-Cov-2 (COVID-19) PCR, MMC Negative (NEGATIVE)
--- NOTE | 2023-10-05 18:18 | NUR ---
JULIEN, PHARMACIST FROM [facility] STATES ATIVAN 2MG/1ML ONLY COMES IN 30 ML VIAL, REQUESTING CLARIFICATION FOR 30ML VIAL INSTEAD OF [address] CACERES WHO AUTHORIZES THIS CHANGE. VERBAL CLARIFICATION GIVEN TO JULIEN, [phone]
== END 2023-10-05 12:25 | DRG 951 ==
LOC: ER 13:51 → MEDS 13:52 → ENPENDDIS 10-05 10:27 → MEDS 10-05 12:25
PROVIDERS: Emergency Medicine; Family Medicine; ADMIT Family Medicine
DX: Z51.5 Encounter for palliative care (principal); G92.8 Other toxic encephalopathy; F11.20 Opioid dependence, uncomplicated; N39.0 Urinary tract infection, site not specified; I10 Essential (primary) hypertension; G47.33 Obstructive sleep apnea (adult) (pediatric); F31.9 Bipolar disorder, unspecified; G89.29 Other chronic pain; Z66 Do not resuscitate; R09.02 Hypoxemia; M79.7 Fibromyalgia; J43.9 Emphysema, unspecified; M54.9 Dorsalgia, unspecified; R62.7 Adult failure to thrive; E66.01 Morbid (severe) obesity due to excess calories; M19.90 Unspecified osteoarthritis, unspecified site; F17.290 Nicotine dependence, other tobacco product, uncomplicated; Z96.612 Presence of left artificial shoulder joint; Z96.611 Presence of right artificial shoulder joint; Z99.81 Dependence on supplemental oxygen; Z75.1 Person awaiting admission to adequate facility elsewhere; Z86.73 Personal history of transient ischemic attack (TIA), and cerebral infarction without residual deficits; Z11.52 Encounter for screening for COVID-19; Z88.8 Allergy status to other drugs, medicaments and biological substances; Z88.1 Allergy status to other antibiotic agents; Z88.0 Allergy status to penicillin; Z91.040 Latex allergy status; Z90.49 Acquired absence of other specified parts of digestive tract; Z68.32 Body mass index [BMI] 32.0-32.9, adult; Z60.2 Problems related to living alone
CPT/HCPCS: 0241U; 80053; 81001; 85025; 93005; 93010; 96365; 96375; 96376; 99284-25; A9270; G0378; J1956; J2060; J2270